=== PATIENT | male | born 1970 | race Caucasian/White ===

== ENCOUNTER 2017-03-07 17:21 | Inpatient (IN) | payer OTHER, SELFPAY ==
[~2017-03-07] VITALS: Ht 165.1 cm; Wt 93.3 kg
[2017-03-07 17:58] LABS: INTERNATIONAL NORMALIZED RATIO 0.93 (0.93-1.1); PROTHROMBIN TIME 9.7 Seconds (9.6-11.5)
[2017-03-07 18:13] LABS: ALANINE AMINOTRANSFERASE 37 U/L (12-78); ALBUMIN 3.2 g/dL (3.4-5.0); ANION GAP 9 mmol/L (5-15); CALCIUM 8.8 mg/dL (8.5-10.1); CHLORIDE 98 mmol/L (98-107); CREATININE 0.73 mg/dL (0.7-1.3)
[2017-03-07 18:16] LABS: ALKALINE PHOSPHATASE 74 U/L (45-117); BILIRUBIN,TOTAL 0.6 mg/dL (0.2-1.0); TOTAL PROTEIN 7.6 g/dL (6.4-8.2)
[2017-03-07 18:20] LABS: BASOPHILS # (AUTO) 0.05 x10^3/uL (0-0.1); BASOPHILS % (AUTO) 0 % (0-1); EOSINOPHILS # (AUTO) 0.03 x10^3/uL (0-0.4); EOSINOPHILS % (AUTO) 0 % (1-7); LYMPHOCYTES # (AUTO) 0.96 x10^3/uL (1-3.4); LYMPHOCYTES % (AUTO) 6 % (22-44); MD NO; MEAN CORPUSCULAR HEMOGLOBIN 29.6 pg (27.5-34.5); MEAN CORPUSCULAR HGB CONC 34.6 g/dL (33.2-36.2); MEAN CORPUSCULAR VOLUME 85.6 fL (81-97); MEAN PLATELET VOLUME 7.3 fL (7.4-10.4); MONOCYTES # (AUTO) 1.05 x10^3/uL (0.2-0.8); MONOCYTES % (AUTO) 6 % (2-9); NEUTROPHILS # (AUTO) 14.57 x10^3/uL (1.8-6.8); NEUTROPHILS % (AUTO) 87 % (42-75); PLATELET COUNT 336 x10^3/uL (130-400); RED BLOOD COUNT 5.01 x10^6/uL (4.38-5.82); RED CELL DISTRIBUTION WIDTH 13.5 % (9.4-14.8)
[2017-03-07] MEDS ORDERED: ONDANSETRON 2MG/ML, 2ML IVPush ONE (19:30)
[2017-03-07] MEDS ORDERED: NS + 20MEQ KCL 1,000 ML IV SCH (19:46)
[2017-03-07] MEDS ORDERED: BISACODYL 10 MG SUPP PR PRN (20:00)
[2017-03-07] MEDS ORDERED: ONDANSETRON 2MG/ML, 2ML IVPush PRN (20:00)
[2017-03-07 21:01] VITALS: BP 189/109
[2017-03-07] MEDS: hydrALAzine 20 MG/ML, 1ML IVPush PRN (21:25)
[2017-03-07 22:00] VITALS: BP 160/87
[2017-03-07] MEDS ORDERED: HALOPERIDOL 5 MG/ML IM ONE (23:00)
[2017-03-07 23:30] VITALS: BP 170/89
[2017-03-08] MEDS ORDERED: SODIUM CHLORIDE 3% 500 ML IV SCH ×4 (01:00→23:06)
[2017-03-08] MEDS ORDERED: LORazepam 2 MG/ML, 1ML IV ONE ×2 (01:30→02:00)
[2017-03-08] MEDS ORDERED: DEXTROSE 50%, 50ML SYRINGE IVPush PRN (02:00)
[2017-03-08] MEDS ORDERED: PHARMACY MAY ADJ FOR RENAL FX MC SCH (02:00)
[2017-03-08] MEDS ORDERED: DEXTROSE 4 GM TAB.CHEW PO PRN (02:00)
[2017-03-08] MEDS ORDERED: INSULIN REGULAR 100 UNITS/ML, 3ML VIAL SQ-INSULIN SCH (02:00)
[2017-03-08] MEDS ORDERED: LIDOCAINE-MPF 1%, 2ML ENDO PRN (02:00)
[2017-03-08] MEDS ORDERED: GLUCAGON 1 MG IM PRN (02:00)
[2017-03-08] MEDS ORDERED: VECURONIUM 10 MG IV ONE (02:00)
[2017-03-08] MEDS ORDERED: MIDAZOLAM 1 MG/ML, 5ML ONE (02:28)
[2017-03-08] MEDS ORDERED: MIDAZOLAM 1 MG/ML, 5ML IVPush ONE (02:30)
[2017-03-08] MEDS: MIDAZOLAM HCL 25 MG in SODIUM CHLORIDE 0.9% 245 ML IV PRN ×5 (02:38→16:25)
[2017-03-08] MEDS ORDERED: AMPICILLIN/SULBACTAM 3 GM in SODIUM CHLORIDE 0.9% 100 ML IV SCH (03:00)
[2017-03-08] MEDS: FAMOTIDINE 20 MG/2 ML IV SCH ×2 (03:02→13:43)
[2017-03-08] MEDS: PROPOFOL 100 ML IV PRN ×8 (03:03→23:51)
[2017-03-08 03:13] LABS: ALANINE AMINOTRANSFERASE 37 U/L (12-78); ALBUMIN 2.9 g/dL (3.4-5.0); ANION GAP 10 mmol/L (5-15); CALCIUM 8.8 mg/dL (8.5-10.1); CHLORIDE 97 mmol/L (98-107); CREATININE 1.27 mg/dL (0.7-1.3)
[2017-03-08 03:15] LABS: ALKALINE PHOSPHATASE 75 U/L (45-117); MD YES; MEAN CORPUSCULAR HEMOGLOBIN 29.4 pg (27.5-34.5); MEAN CORPUSCULAR HGB CONC 34.3 g/dL (33.2-36.2); MEAN CORPUSCULAR VOLUME 85.8 fL (81-97); MEAN PLATELET VOLUME 7.2 fL (7.4-10.4); PLATELET COUNT 339 x10^3/uL (130-400); RED BLOOD COUNT 5.02 x10^6/uL (4.38-5.82); RED CELL DISTRIBUTION WIDTH 13.5 % (9.4-14.8); TOTAL PROTEIN 7.7 g/dL (6.4-8.2)
[2017-03-08 03:18] LABS: BAND#(MANUAL) 1.78 x10^3/uL; BANDS%(MANUAL) 5 % (0-7); LYMPH#(MANUAL) 0.71 x10^3/uL (1-3.4); LYMPHS% (MANUAL) 2 % (22-44); MONOS#(MANUAL) 0.71 x10^3/uL (0.3-2.7); MONOS% (MANUAL) 2 % (2-9); SEG#(MANUAL) 32.31 x10^3/uL (1.8-6.8); SEGS% (MANUAL) 91 % (42-75)
[2017-03-08 03:20] LABS: <PLATELET ESTIMATE> ADEQUATE; <PLT MORPHOLOGY> NORMAL PLT MORPH; <RBC MORPHOLOGY> NORMAL
[2017-03-08 03:22] LABS: GLUCOSE, CSF 86 mg/dL (40-80)
[2017-03-08 03:53] LABS: TOTAL PROTEIN,CSF 453 mg/dL (15-45)
[2017-03-08 04:00] VITALS: BP 146/94
[2017-03-08] MEDS: ACETAMINOPHEN 650 MG/20.3 ML UDC NG PRN ×3 (05:01→23:50)
[2017-03-08 05:33] LABS: MICROSCOPIC INDICATED
[2017-03-08 05:41] LABS: AMPHETAMINE SCREEN, URINE Negative (Negative); BARBITURATE SCREEN, URINE Negative (Negative); BENZODIAZEPINE SCREEN, URINE Positive (Negative); CANNABINOID SCREEN, URINE Negative (Negative); COCAINE SCREEN, URINE Negative (Negative); METHADONE SCREEN, URINE Negative (Negative); OPIATE SCREEN, URINE Negative (Negative)
[2017-03-08 05:53] LABS: CULTURE INDICATED? NO
[2017-03-08] MEDS: hydrALAzine 20 MG/ML, 1ML IVPush PRN (06:30)
[2017-03-08] MEDS ORDERED: VECURONIUM 10 MG ONE (08:00)
[2017-03-08] MEDS ORDERED: PROPOFOL 10 MG/ML, 100ML IV ONE (08:00)
[2017-03-08] MEDS ORDERED: ETOMIDATE 20 MG/10 ML ONE (08:00)
[2017-03-08] MEDS ORDERED: PHARMACOKINETIC MONITORING MC PRN (08:00)
[2017-03-08] MEDS ORDERED: VANCOMYCIN PER PHARMACY MC PRN (08:00)
[2017-03-08] MEDS ORDERED: VANCOMYCIN 1,800 MG in SODIUM CHLORIDE 0.9% 250 ML IV SCH (08:00)
[2017-03-08] MEDS ORDERED: SUCCINYLCHOLINE 20 MG/ML, 10ML ONE (08:00)
[2017-03-08] MEDS ORDERED: PROPOFOL 10 MG/ML, 20ML ONE (08:00)
[2017-03-08] MEDS ORDERED: PHARMACOKINETIC CONSULTATION MC ONE (08:00)
[2017-03-08] MEDS: INSULIN REGULAR 100 UNITS/ML, 3ML VIAL SQ-INSULIN SCH ×4 (08:30→21:19)
[2017-03-08] MEDS ORDERED: CEFTRIAXONE PMX 2GM/50ML 50 ML IVPB SCH (08:30)
[2017-03-08 08:42] LABS: HEMOGLOBIN A1C 6.2 % (4.2-6.3)
[2017-03-08] MEDS: SODIUM CHLORIDE FLUSH 10ML SYR IVF SCH ×2 (08:54→21:19)
[2017-03-08] MEDS: BACITRACIN OINT 500U/GM, 15 GM TP SCH ×3 (08:54→21:20)
[2017-03-08] MEDS: CEFTRIAXONE PMX 2GM/50ML 50 ML IVPB SCH ×2 (10:33→22:45)
[2017-03-08] MEDS: METRONIDAZOLE PMX 500MG/100ML 100 ML IV SCH ×2 (12:13→19:35)
[2017-03-08] MEDS: VANCOMYCIN 1,800 MG in SODIUM CHLORIDE 0.9% 250 ML IV SCH (13:00)
[2017-03-08] MEDS ORDERED: LORazepam 2 MG/ML, 1ML IVPush ONE (18:00)
[2017-03-08] MEDS ORDERED: BUPIVACAINE/PF 0.5% ONE (18:32)
[2017-03-08] MEDS ORDERED: THROMBIN 5,000 UNIT VIAL TP ONE (18:32)
[2017-03-08] MEDS ORDERED: EPINEPHRINE 1 MG/ML, 1ML ONE (18:32)
[2017-03-08] MEDS ORDERED: BACITRACIN 50,000 UNIT ONE (18:32)
[2017-03-08] MEDS ORDERED: FENTANYL PF 250 MCG/5ML ONE (19:00)
[2017-03-08] MEDS ORDERED: MIDAZOLAM 1 MG/ML, 2ML ONE (19:00)
[2017-03-08] MEDS: MIDAZOLAM HCL 50 MG in SODIUM CHLORIDE 0.9% 240 ML IV PRN (19:34)
[2017-03-08] MEDS ORDERED: BACITRACIN OINT 500U/GM, 15 GM ONE ×2 (20:04→20:25)
[2017-03-08] MEDS ORDERED: ROCURONIUM 10 MG/ML,10ML ONE (20:25)
[2017-03-09] MEDS: VANCOMYCIN 1,800 MG in SODIUM CHLORIDE 0.9% 250 ML IV SCH ×2 (00:17→13:00)
[2017-03-09] MEDS: MIDAZOLAM HCL 50 MG in SODIUM CHLORIDE 0.9% 240 ML IV PRN ×2 (00:17→07:44)
[2017-03-09] MEDS: INSULIN REGULAR 100 UNITS/ML, 3ML VIAL SQ-INSULIN SCH ×4 (00:30→20:56)
[2017-03-09] MEDS: FAMOTIDINE 20 MG/2 ML IV SCH ×2 (02:10→17:06)
[2017-03-09] MEDS: hydrALAzine 20 MG/ML, 1ML IVPush PRN ×2 (02:10→11:05)
[2017-03-09] MEDS: PROPOFOL 100 ML IV PRN ×4 (02:16→23:23)
[2017-03-09] MEDS: LORazepam 2 MG/ML, 1ML IVPush PRN ×2 (02:49→12:52)
[2017-03-09] MEDS: METRONIDAZOLE PMX 500MG/100ML 100 ML IV SCH ×3 (04:24→20:52)
[2017-03-09 04:32] LABS: MEAN CORPUSCULAR HEMOGLOBIN 29.5 pg (27.5-34.5); MEAN CORPUSCULAR VOLUME 86.8 fL (81-97); MEAN PLATELET VOLUME 7.1 fL (7.4-10.4); PLATELET COUNT 245 x10^3/uL (130-400); RED BLOOD COUNT 4.18 x10^6/uL (4.38-5.82); RED CELL DISTRIBUTION WIDTH 14.1 % (9.4-14.8)
[2017-03-09 04:41] LABS: ANION GAP 9 mmol/L (5-15); CALCIUM 8.3 mg/dL (8.5-10.1); CHLORIDE 109 mmol/L (98-107); CREATININE 0.77 mg/dL (0.7-1.3)
[2017-03-09 05:06] LABS: BASOPHILS # (AUTO) 0.03 x10^3/uL (0-0.1); BASOPHILS % (AUTO) 0 % (0-1); EOSINOPHILS # (AUTO) 0.01 x10^3/uL (0-0.4); EOSINOPHILS % (AUTO) 0 % (1-7); LYMPHOCYTES # (AUTO) 0.65 x10^3/uL (1-3.4); LYMPHOCYTES % (AUTO) 4 % (22-44); MD SCAN; MONOCYTES # (AUTO) 0.87 x10^3/uL (0.2-0.8); MONOCYTES % (AUTO) 6 % (2-9); NEUTROPHILS # (AUTO) 14.36 x10^3/uL (1.8-6.8); NEUTROPHILS % (AUTO) 90 % (42-75)
[2017-03-09] MEDS ORDERED: SODIUM CHLORIDE 3% 500 ML IV SCH ×5 (06:00→22:00)
[2017-03-09] MEDS: SODIUM CHLORIDE FLUSH 10ML SYR IVF SCH ×2 (08:38→20:51)
[2017-03-09] MEDS: BACITRACIN OINT 500U/GM, 15 GM TP SCH ×2 (08:42→20:52)
[2017-03-09] MEDS ORDERED: INSULIN REGULAR, HUMAN 100 UNIT/ML 3ML VIAL LOW DOSE SS SQ-INSULIN SCH (09:30)
[2017-03-09] MEDS: CEFTRIAXONE PMX 2GM/50ML 50 ML IVPB SCH ×2 (10:56→23:22)
[2017-03-09] MEDS: ACETAMINOPHEN 650 MG/20.3 ML UDC NG PRN ×2 (11:05→20:57)
[2017-03-09] MEDS ORDERED: GADOBUTROL 10 MMOL/10 ML PFS ONE (12:20)
[2017-03-10] MEDS: hydrALAzine 20 MG/ML, 1ML IVPush PRN ×4 (02:27→23:15)
[2017-03-10] MEDS: VANCOMYCIN 1,800 MG in SODIUM CHLORIDE 0.9% 250 ML IV SCH (02:27)
[2017-03-10] MEDS: FAMOTIDINE 20 MG/2 ML IV SCH ×2 (02:27→14:31)
[2017-03-10] MEDS: INSULIN REGULAR 100 UNITS/ML, 3ML VIAL SQ-INSULIN SCH ×4 (03:00→21:28)
[2017-03-10] MEDS: LORazepam 2 MG/ML, 1ML IVPush PRN ×2 (03:05→09:06)
[2017-03-10] MEDS: PROPOFOL 100 ML IV PRN ×3 (03:21→20:30)
[2017-03-10] MEDS: METRONIDAZOLE PMX 500MG/100ML 100 ML IV SCH ×2 (03:21→16:55)
[2017-03-10 03:22] LABS: BASOPHILS # (AUTO) 0.02 x10^3/uL (0-0.1); BASOPHILS % (AUTO) 0 % (0-1); EOSINOPHILS # (AUTO) 0.01 x10^3/uL (0-0.4); EOSINOPHILS % (AUTO) 0 % (1-7); LYMPHOCYTES # (AUTO) 0.96 x10^3/uL (1-3.4); LYMPHOCYTES % (AUTO) 6 % (22-44); MD NO; MEAN CORPUSCULAR HEMOGLOBIN 29.4 pg (27.5-34.5); MEAN CORPUSCULAR HGB CONC 33.6 g/dL (33.2-36.2); MEAN CORPUSCULAR VOLUME 87.5 fL (81-97); MEAN PLATELET VOLUME 7.2 fL (7.4-10.4); MONOCYTES # (AUTO) 1.13 x10^3/uL (0.2-0.8); MONOCYTES % (AUTO) 8 % (2-9); NEUTROPHILS # (AUTO) 12.79 x10^3/uL (1.8-6.8); NEUTROPHILS % (AUTO) 86 % (42-75); PLATELET COUNT 262 x10^3/uL (130-400); RED BLOOD COUNT 4.42 x10^6/uL (4.38-5.82); RED CELL DISTRIBUTION WIDTH 13.9 % (9.4-14.8)
[2017-03-10 03:28] LABS: ANION GAP 6 mmol/L (5-15); CALCIUM 8.8 mg/dL (8.5-10.1); CHLORIDE 111 mmol/L (98-107); CREATININE 0.78 mg/dL (0.7-1.3)
[2017-03-10] MEDS: SODIUM CHLORIDE FLUSH 10ML SYR IVF SCH ×2 (09:00→21:27)
[2017-03-10] MEDS: METOPROLOL 1 MG/ML, 5ML IVPush PRN ×3 (10:13→23:40)
[2017-03-10] MEDS: BACITRACIN OINT 500U/GM, 15 GM TP SCH ×2 (10:15→21:28)
[2017-03-10] MEDS ORDERED: METOPROLOL 1 MG/ML, 5ML IVPush PRN (10:30)
[2017-03-10] MEDS: CEFTRIAXONE PMX 2GM/50ML 50 ML IVPB SCH ×2 (11:16→23:15)
[2017-03-10] MEDS ORDERED: SODIUM CHLORIDE 3% 500 ML IV SCH ×4 (11:30→22:30)
[2017-03-10] MEDS: LISINOPRIL 10 MG TABLET PO SCH ×2 (14:31→21:28)
[2017-03-10 14:37] LABS: GLUCOSE, CSF 40 mg/dL (40-80)
[2017-03-10 15:00] LABS: TOTAL PROTEIN,CSF 265 mg/dL (15-45)
[2017-03-10] MEDS: ACETAMINOPHEN 650 MG/20.3 ML UDC NG PRN (16:01)
[2017-03-11] MEDS: METRONIDAZOLE PMX 500MG/100ML 100 ML IV SCH ×3 (01:06→16:54)
[2017-03-11] MEDS: FAMOTIDINE 20 MG/2 ML IV SCH ×2 (02:42→14:40)
[2017-03-11] MEDS: INSULIN REGULAR 100 UNITS/ML, 3ML VIAL SQ-INSULIN SCH ×4 (03:24→20:58)
[2017-03-11 04:00] VITALS: BP 146/74
[2017-03-11] MEDS: METOPROLOL 1 MG/ML, 5ML IVPush PRN ×3 (04:32→13:45)
[2017-03-11 05:07] LABS: BASOPHILS # (AUTO) 0.04 x10^3/uL (0-0.1); BASOPHILS % (AUTO) 0 % (0-1); EOSINOPHILS # (AUTO) 0.03 x10^3/uL (0-0.4); EOSINOPHILS % (AUTO) 0 % (1-7); LYMPHOCYTES # (AUTO) 0.74 x10^3/uL (1-3.4); LYMPHOCYTES % (AUTO) 6 % (22-44); MD NO; MEAN CORPUSCULAR HEMOGLOBIN 29.2 pg (27.5-34.5); MEAN CORPUSCULAR HGB CONC 33.3 g/dL (33.2-36.2); MEAN CORPUSCULAR VOLUME 87.6 fL (81-97); MEAN PLATELET VOLUME 7.1 fL (7.4-10.4); MONOCYTES # (AUTO) 1.04 x10^3/uL (0.2-0.8); MONOCYTES % (AUTO) 9 % (2-9); NEUTROPHILS # (AUTO) 10.15 x10^3/uL (1.8-6.8); NEUTROPHILS % (AUTO) 85 % (42-75); PLATELET COUNT 290 x10^3/uL (130-400); RED BLOOD COUNT 4.22 x10^6/uL (4.38-5.82); RED CELL DISTRIBUTION WIDTH 14.5 % (9.4-14.8)
[2017-03-11 05:17] LABS: CHLORIDE 111 mmol/L (98-107)
[2017-03-11] MEDS: PROPOFOL 100 ML IV PRN ×2 (05:25→18:06)
[2017-03-11 05:26] LABS: ANION GAP 9 mmol/L (5-15); CALCIUM 8.6 mg/dL (8.5-10.1); CREATININE 0.74 mg/dL (0.7-1.3); TRIGLYCERIDES 79 mg/dL (50-200)
[2017-03-11] MEDS: hydrALAzine 20 MG/ML, 1ML IVPush PRN ×4 (05:31→20:52)
[2017-03-11] MEDS: LISINOPRIL 10 MG TABLET PO SCH (07:33)
[2017-03-11] MEDS: ACETAMINOPHEN 650 MG/20.3 ML UDC NG PRN (07:33)
[2017-03-11] MEDS: SODIUM CHLORIDE FLUSH 10ML SYR IVF SCH ×2 (07:33→20:51)
[2017-03-11] MEDS: BACITRACIN OINT 500U/GM, 15 GM TP SCH ×2 (07:33→21:01)
[2017-03-11] MEDS ORDERED: LISINOPRIL 20 MG TABLET PO SCH (09:00)
[2017-03-11] MEDS ORDERED: AMLODIPINE 5 MG TABLET PO SCH (09:00)
[2017-03-11] MEDS: CEFTRIAXONE PMX 2GM/50ML 50 ML IVPB SCH ×2 (11:04→22:45)
[2017-03-11] MEDS ORDERED: METOPROLOL TARTRATE 25 MG TABLET ONE (14:12)
[2017-03-11] MEDS: METOPROLOL TARTRATE 25 MG TABLET PO SCH (14:41)
[2017-03-11] MEDS: ESMOLOL/NS PMX 250 ML IV PRN (17:11)
[2017-03-11] MEDS: LISINOPRIL 20 MG TABLET PO SCH (20:51)
[2017-03-12] MEDS: ESMOLOL/NS PMX 250 ML IV PRN ×7 (00:32→22:11)
[2017-03-12] MEDS: METRONIDAZOLE PMX 500MG/100ML 100 ML IV SCH ×3 (01:43→17:06)
[2017-03-12] MEDS: INSULIN REGULAR 100 UNITS/ML, 3ML VIAL SQ-INSULIN SCH ×4 (03:00→21:00)
[2017-03-12 04:00] VITALS: BP 144/84
[2017-03-12] MEDS: FAMOTIDINE 20 MG/2 ML IV SCH ×2 (04:07→15:21)
[2017-03-12] MEDS: METOPROLOL TARTRATE 25 MG TABLET PO SCH ×2 (04:07→15:21)
[2017-03-12 04:33] LABS: BASOPHILS # (AUTO) 0.04 x10^3/uL (0-0.1); BASOPHILS % (AUTO) 0 % (0-1); EOSINOPHILS # (AUTO) 0.03 x10^3/uL (0-0.4); EOSINOPHILS % (AUTO) 0 % (1-7); LYMPHOCYTES # (AUTO) 0.98 x10^3/uL (1-3.4); LYMPHOCYTES % (AUTO) 8 % (22-44); MD NO; MEAN CORPUSCULAR HEMOGLOBIN 29.1 pg (27.5-34.5); MEAN CORPUSCULAR HGB CONC 33.7 g/dL (33.2-36.2); MEAN CORPUSCULAR VOLUME 86.3 fL (81-97); MEAN PLATELET VOLUME 7.2 fL (7.4-10.4); MONOCYTES % (AUTO) 9 % (2-9); NEUTROPHILS # (AUTO) 10.72 x10^3/uL (1.8-6.8); NEUTROPHILS % (AUTO) 83 % (42-75); PLATELET COUNT 289 x10^3/uL (130-400); RED BLOOD COUNT 4.28 x10^6/uL (4.38-5.82); RED CELL DISTRIBUTION WIDTH 14.6 % (9.4-14.8)
[2017-03-12 04:39] LABS: ANION GAP 7 mmol/L (5-15); CALCIUM 8.6 mg/dL (8.5-10.1); CHLORIDE 110 mmol/L (98-107)
[2017-03-12 04:40] LABS: CREATININE 0.77 mg/dL (0.7-1.3)
[2017-03-12] MEDS: hydrALAzine 20 MG/ML, 1ML IVPush PRN ×2 (05:14→13:51)
[2017-03-12] MEDS: PROPOFOL 100 ML IV PRN (10:06)
[2017-03-12] MEDS: AMLODIPINE 5 MG TABLET PO SCH (10:07)
[2017-03-12] MEDS: CEFTRIAXONE PMX 2GM/50ML 50 ML IVPB SCH ×2 (10:08→23:08)
[2017-03-12] MEDS: LISINOPRIL 20 MG TABLET PO SCH ×2 (10:08→21:04)
[2017-03-12] MEDS: BACITRACIN OINT 500U/GM, 15 GM TP SCH ×2 (10:17→21:00)
[2017-03-12] MEDS: SODIUM CHLORIDE FLUSH 10ML SYR IVF SCH ×2 (10:17→21:04)
[2017-03-12] MEDS ORDERED: FUROSEMIDE 20 MG/2 ML ONE (16:45)
[2017-03-12] MEDS ORDERED: FUROSEMIDE 20 MG/2 ML IV ONE (18:30)
[2017-03-12] MEDS: LORazepam 2 MG/ML, 1ML IVPush PRN (21:33)
[2017-03-12] MEDS: METOPROLOL 1 MG/ML, 5ML IVPush PRN (23:59)
[2017-03-13] MEDS: ESMOLOL/NS PMX 250 ML IV PRN ×6 (00:10→12:21)
[2017-03-13] MEDS: LORazepam 2 MG/ML, 1ML IVPush PRN ×2 (01:20→03:55)
[2017-03-13] MEDS ORDERED: METOPROLOL TARTRATE 25 MG TABLET PO SCH (02:30)
[2017-03-13] MEDS: FAMOTIDINE 20 MG/2 ML IV SCH ×2 (02:33→15:57)
[2017-03-13] MEDS: INSULIN REGULAR 100 UNITS/ML, 3ML VIAL SQ-INSULIN SCH ×4 (02:41→21:00)
[2017-03-13 03:41] LABS: BASOPHILS # (AUTO) 0.02 x10^3/uL (0-0.1); BASOPHILS % (AUTO) 0 % (0-1); EOSINOPHILS # (AUTO) 0.05 x10^3/uL (0-0.4); EOSINOPHILS % (AUTO) 0 % (1-7); LYMPHOCYTES # (AUTO) 0.99 x10^3/uL (1-3.4); LYMPHOCYTES % (AUTO) 7 % (22-44); MD NO; MEAN CORPUSCULAR HEMOGLOBIN 29.1 pg (27.5-34.5); MEAN CORPUSCULAR HGB CONC 33.1 g/dL (33.2-36.2); MEAN CORPUSCULAR VOLUME 87.7 fL (81-97); MEAN PLATELET VOLUME 7.4 fL (7.4-10.4); MONOCYTES # (AUTO) 1.18 x10^3/uL (0.2-0.8); MONOCYTES % (AUTO) 8 % (2-9); NEUTROPHILS # (AUTO) 12.68 x10^3/uL (1.8-6.8); NEUTROPHILS % (AUTO) 85 % (42-75); PLATELET COUNT 309 x10^3/uL (130-400); RED BLOOD COUNT 4.45 x10^6/uL (4.38-5.82); RED CELL DISTRIBUTION WIDTH 14.3 % (9.4-14.8)
[2017-03-13 03:47] LABS: ANION GAP 10 mmol/L (5-15); CALCIUM 8.8 mg/dL (8.5-10.1); CHLORIDE 107 mmol/L (98-107); CREATININE 0.72 mg/dL (0.7-1.3)
[2017-03-13 04:10] VITALS: BP 135/78
[2017-03-13] MEDS: SODIUM CHLORIDE FLUSH 10ML SYR IVF SCH ×2 (07:26→21:28)
[2017-03-13] MEDS: AMLODIPINE 5 MG TABLET PO SCH (07:27)
[2017-03-13] MEDS: LISINOPRIL 20 MG TABLET PO SCH ×2 (07:27→21:28)
[2017-03-13] MEDS: CEFTRIAXONE PMX 2GM/50ML 50 ML IVPB SCH ×2 (10:29→23:32)
[2017-03-13] MEDS: MINOXIDIL 2.5 MG TABLET PO SCH ×3 (10:29→21:27)
[2017-03-13] MEDS: METOPROLOL TARTRATE 100 MG TABLET PO SCH ×2 (10:29→21:27)
[2017-03-13 11:21] LABS: GLUCOSE, CSF 71 mg/dL (40-80); TOTAL PROTEIN,CSF 203 mg/dL (15-45)
[2017-03-13] MEDS: BACITRACIN OINT 500U/GM, 15 GM TP SCH ×2 (15:54→21:28)
[2017-03-13] MEDS: FUROSEMIDE 20 MG/2 ML IV SCH (16:44)
[2017-03-14] MEDS: FUROSEMIDE 20 MG/2 ML IV SCH ×3 (00:29→16:37)
[2017-03-14] MEDS: FAMOTIDINE 20 MG/2 ML IV SCH ×2 (02:26→16:36)
[2017-03-14] MEDS: INSULIN REGULAR 100 UNITS/ML, 3ML VIAL SQ-INSULIN SCH ×4 (03:00→20:59)
[2017-03-14 04:00] VITALS: BP 126/58
[2017-03-14 04:54] LABS: MEAN CORPUSCULAR HEMOGLOBIN 29.5 pg (27.5-34.5); MEAN CORPUSCULAR HGB CONC 33.9 g/dL (33.2-36.2); MEAN CORPUSCULAR VOLUME 86.9 fL (81-97); PLATELET COUNT 314 x10^3/uL (130-400); RED BLOOD COUNT 4.51 x10^6/uL (4.38-5.82); RED CELL DISTRIBUTION WIDTH 14.1 % (9.4-14.8)
[2017-03-14 05:02] LABS: ANION GAP 6 mmol/L (5-15); CALCIUM 8.9 mg/dL (8.5-10.1); CHLORIDE 111 mmol/L (98-107); CREATININE 0.84 mg/dL (0.7-1.3); TRIGLYCERIDES 132 mg/dL (50-200)
[2017-03-14 05:47] LABS: BASOPHILS # (AUTO) 0.11 x10^3/uL (0-0.1); BASOPHILS % (AUTO) 1 % (0-1); EOSINOPHILS # (AUTO) 0.09 x10^3/uL (0-0.4); EOSINOPHILS % (AUTO) 1 % (1-7); LYMPHOCYTES # (AUTO) 1.09 x10^3/uL (1-3.4); LYMPHOCYTES % (AUTO) 6 % (22-44); MD SCAN; MONOCYTES # (AUTO) 1.07 x10^3/uL (0.2-0.8); MONOCYTES % (AUTO) 6 % (2-9); NEUTROPHILS # (AUTO) 15.54 x10^3/uL (1.8-6.8); NEUTROPHILS % (AUTO) 87 % (42-75)
[2017-03-14] MEDS: SODIUM CHLORIDE FLUSH 10ML SYR IVF SCH (09:36)
[2017-03-14] MEDS: METOPROLOL TARTRATE 100 MG TABLET PO SCH ×2 (09:37→21:00)
[2017-03-14] MEDS: AMLODIPINE 5 MG TABLET PO SCH (09:37)
[2017-03-14] MEDS: POTASSIUM CHLORIDE 10% 40 MEQ/30 ML UDC PO SCH ×2 (09:37→20:55)
[2017-03-14] MEDS: LISINOPRIL 20 MG TABLET PO SCH ×2 (09:38→21:00)
[2017-03-14] MEDS: ACETAMINOPHEN 650 MG/20.3 ML UDC NG PRN ×3 (09:38→23:39)
[2017-03-14] MEDS: DOXAZOSIN 2MG TABLET PO SCH (10:06)
[2017-03-14] MEDS: CEFTRIAXONE PMX 2GM/50ML 50 ML IVPB SCH ×2 (11:54→23:39)
[2017-03-14] MEDS: BACITRACIN OINT 500U/GM, 15 GM TP SCH ×2 (14:23→20:55)
[2017-03-15] MEDS: FUROSEMIDE 20 MG/2 ML IV SCH ×3 (00:55→17:26)
[2017-03-15] MEDS: SODIUM CHLORIDE FLUSH 10ML SYR IVF SCH ×3 (01:02→20:46)
[2017-03-15] MEDS: FAMOTIDINE 20 MG/2 ML IV SCH ×2 (02:42→15:15)
[2017-03-15] MEDS: INSULIN REGULAR 100 UNITS/ML, 3ML VIAL SQ-INSULIN SCH ×4 (02:46→21:00)
[2017-03-15 04:00] VITALS: BP 122/72
[2017-03-15 04:41] LABS: BASOPHILS # (AUTO) 0.02 x10^3/uL (0-0.1); BASOPHILS % (AUTO) 0 % (0-1); EOSINOPHILS % (AUTO) 2 % (1-7); LYMPHOCYTES # (AUTO) 1.01 x10^3/uL (1-3.4); LYMPHOCYTES % (AUTO) 8 % (22-44); MD NO; MEAN CORPUSCULAR HEMOGLOBIN 29.2 pg (27.5-34.5); MEAN CORPUSCULAR HGB CONC 33.6 g/dL (33.2-36.2); MEAN CORPUSCULAR VOLUME 87.1 fL (81-97); MEAN PLATELET VOLUME 7.4 fL (7.4-10.4); MONOCYTES # (AUTO) 1.05 x10^3/uL (0.2-0.8); MONOCYTES % (AUTO) 8 % (2-9); NEUTROPHILS # (AUTO) 11.26 x10^3/uL (1.8-6.8); NEUTROPHILS % (AUTO) 83 % (42-75); PLATELET COUNT 262 x10^3/uL (130-400); RED BLOOD COUNT 4.25 x10^6/uL (4.38-5.82); RED CELL DISTRIBUTION WIDTH 14.2 % (9.4-14.8)
[2017-03-15 04:50] LABS: ANION GAP 6 mmol/L (5-15); CALCIUM 8.6 mg/dL (8.5-10.1); CHLORIDE 115 mmol/L (98-107)
[2017-03-15 04:53] LABS: CREATININE 1.11 mg/dL (0.7-1.3)
[2017-03-15] MEDS: DOXAZOSIN 2MG TABLET PO SCH (07:01)
[2017-03-15] MEDS: METOPROLOL TARTRATE 100 MG TABLET PO SCH ×2 (08:51→20:46)
[2017-03-15] MEDS: LISINOPRIL 20 MG TABLET PO SCH ×2 (08:51→20:47)
[2017-03-15] MEDS: POTASSIUM CHLORIDE 10% 40 MEQ/30 ML UDC PO SCH ×2 (08:51→20:47)
[2017-03-15] MEDS: AMLODIPINE 5 MG TABLET PO SCH (08:51)
[2017-03-15] MEDS: BACITRACIN OINT 500U/GM, 15 GM TP SCH ×2 (09:07→20:47)
[2017-03-15] MEDS: CEFTRIAXONE PMX 2GM/50ML 50 ML IVPB SCH ×2 (11:33→22:54)
[2017-03-15] MEDS: ACETAMINOPHEN 650 MG/20.3 ML UDC NG PRN ×2 (12:51→22:01)
[2017-03-16] MEDS: FAMOTIDINE 20 MG/2 ML IV SCH ×2 (02:03→14:05)
[2017-03-16] MEDS: FUROSEMIDE 20 MG/2 ML IV SCH ×2 (02:03→09:03)
[2017-03-16] MEDS: ACETAMINOPHEN 650 MG/20.3 ML UDC NG PRN ×2 (04:22→18:11)
[2017-03-16 04:31] LABS: MEAN CORPUSCULAR HEMOGLOBIN 29.6 pg (27.5-34.5); MEAN CORPUSCULAR VOLUME 87.1 fL (81-97); MEAN PLATELET VOLUME 7.4 fL (7.4-10.4); PLATELET COUNT 333 x10^3/uL (130-400); RED BLOOD COUNT 4.72 x10^6/uL (4.38-5.82); RED CELL DISTRIBUTION WIDTH 14.6 % (9.4-14.8)
[2017-03-16 04:35] VITALS: BP 132/70
[2017-03-16 04:40] LABS: ANION GAP 4 mmol/L (5-15); CALCIUM 9.2 mg/dL (8.5-10.1); CHLORIDE 116 mmol/L (98-107); CREATININE 1.04 mg/dL (0.7-1.3)
[2017-03-16 05:13] LABS: BASOPHILS # (AUTO) 0.03 x10^3/uL (0-0.1); BASOPHILS % (AUTO) 0 % (0-1); EOSINOPHILS # (AUTO) 0.25 x10^3/uL (0-0.4); EOSINOPHILS % (AUTO) 2 % (1-7); LYMPHOCYTES # (AUTO) 0.91 x10^3/uL (1-3.4); LYMPHOCYTES % (AUTO) 6 % (22-44); MD SCAN; MONOCYTES # (AUTO) 1.13 x10^3/uL (0.2-0.8); MONOCYTES % (AUTO) 7 % (2-9); NEUTROPHILS # (AUTO) 14.08 x10^3/uL (1.8-6.8); NEUTROPHILS % (AUTO) 86 % (42-75)
[2017-03-16] MEDS: INSULIN REGULAR 100 UNITS/ML, 3ML VIAL SQ-INSULIN SCH (05:30)
[2017-03-16] MEDS: METOPROLOL TARTRATE 50 MG TABLET PO SCH ×2 (09:04→16:59)
[2017-03-16] MEDS: DOXAZOSIN 2MG TABLET PO SCH (09:04)
[2017-03-16] MEDS: LISINOPRIL 20 MG TABLET PO SCH ×2 (09:04→20:32)
[2017-03-16] MEDS: POTASSIUM CHLORIDE 10% 40 MEQ/30 ML UDC PO SCH ×2 (09:04→21:01)
[2017-03-16] MEDS: AMLODIPINE 5 MG TABLET PO SCH (09:04)
[2017-03-16] MEDS: BACITRACIN OINT 500U/GM, 15 GM TP SCH ×2 (09:05→21:01)
[2017-03-16 10:03] LABS: GLUCOSE, CSF 31 mg/dL (40-80); TOTAL PROTEIN,CSF 238 mg/dL (15-45)
[2017-03-16] MEDS: SODIUM CHLORIDE FLUSH 10ML SYR IVF SCH ×2 (11:00→21:01)
[2017-03-16] MEDS: CEFTRIAXONE PMX 2GM/50ML 50 ML IVPB SCH ×2 (11:00→23:07)
[2017-03-16] MEDS ORDERED: FENTANYL PF 100 MCG/2ML ONE (15:06)
[2017-03-16] MEDS ORDERED: MIDAZOLAM 1 MG/ML, 5ML ONE (15:06)
[2017-03-16] MEDS ORDERED: ALBUMIN HUMAN 5% 250 ML IV ONE (16:00)
[2017-03-16] MEDS ORDERED: FENTANYL PF 100 MCG/2ML IVPush ONE (16:00)
[2017-03-16 17:07] LABS: GLUCOSE, CSF 56 mg/dL (40-80); TOTAL PROTEIN,CSF 171 mg/dL (15-45)
[2017-03-16] MEDS ORDERED: SODIUM CHLORIDE 0.9%, 250ML IVBOLUS ONE (20:30)
[2017-03-17] MEDS: METOPROLOL TARTRATE 50 MG TABLET PO SCH ×3 (00:30→16:30)
[2017-03-17] MEDS: FAMOTIDINE 20 MG/2 ML IV SCH ×2 (02:57→16:00)
[2017-03-17 04:00] VITALS: BP 110/50
[2017-03-17 04:47] LABS: BASOPHILS % (AUTO) 1 % (0-1); EOSINOPHILS # (AUTO) 0.49 x10^3/uL (0-0.4); EOSINOPHILS % (AUTO) 3 % (1-7); LYMPHOCYTES # (AUTO) 1.06 x10^3/uL (1-3.4); LYMPHOCYTES % (AUTO) 7 % (22-44); MD NO; MEAN CORPUSCULAR HEMOGLOBIN 29.2 pg (27.5-34.5); MEAN CORPUSCULAR HGB CONC 33.2 g/dL (33.2-36.2); MEAN CORPUSCULAR VOLUME 88.2 fL (81-97); MEAN PLATELET VOLUME 7.7 fL (7.4-10.4); MONOCYTES # (AUTO) 1.09 x10^3/uL (0.2-0.8); MONOCYTES % (AUTO) 7 % (2-9); NEUTROPHILS # (AUTO) 12.14 x10^3/uL (1.8-6.8); NEUTROPHILS % (AUTO) 82 % (42-75); PLATELET COUNT 307 x10^3/uL (130-400); RED CELL DISTRIBUTION WIDTH 14.8 % (9.4-14.8)
[2017-03-17 05:00] LABS: ANION GAP 5 mmol/L (5-15); CALCIUM 9.4 mg/dL (8.5-10.1); CHLORIDE 121 mmol/L (98-107); CREATININE 1.43 mg/dL (0.7-1.3)
[2017-03-17] MEDS: SODIUM CHLORIDE FLUSH 10ML SYR IVF SCH ×2 (07:58→20:30)
[2017-03-17] MEDS: DOXAZOSIN 2MG TABLET PO SCH (08:57)
[2017-03-17] MEDS: AMLODIPINE 5 MG TABLET PO SCH (08:57)
[2017-03-17] MEDS: BACITRACIN OINT 500U/GM, 15 GM TP SCH ×2 (08:58→20:30)
[2017-03-17] MEDS: LISINOPRIL 20 MG TABLET PO SCH ×2 (08:58→20:30)
[2017-03-17] MEDS ORDERED: FUROSEMIDE 20 MG/2 ML IV SCH (09:00)
[2017-03-17] MEDS: TAMSULOSIN 0.4 MG CAP.ER.24H PO SCH (10:04)
[2017-03-17] MEDS: CEFTRIAXONE PMX 2GM/50ML 50 ML IVPB SCH ×2 (11:32→22:35)
[2017-03-17] MEDS ORDERED: SODIUM CHLORIDE 0.9%, 500ML IVBOLUS PRN (13:30)
[2017-03-17] MEDS ORDERED: SODIUM CHLORIDE 0.9%, 500ML IVBOLUS ONE (13:30)
[2017-03-17] MEDS: NOREPINEPHRINE 4 MG in SODIUM CHLORIDE 0.9% 246 ML IV SCH (14:20)
[2017-03-18] MEDS: METOPROLOL TARTRATE 50 MG TABLET PO SCH ×3 (01:18→16:30)
[2017-03-18] MEDS: FAMOTIDINE 20 MG/2 ML IV SCH ×2 (01:31→15:44)
[2017-03-18 03:58] VITALS: BP 138/69
[2017-03-18 04:35] LABS: BASOPHILS # (AUTO) 0.07 x10^3/uL (0-0.1); BASOPHILS % (AUTO) 1 % (0-1); EOSINOPHILS # (AUTO) 0.51 x10^3/uL (0-0.4); EOSINOPHILS % (AUTO) 4 % (1-7); LYMPHOCYTES # (AUTO) 0.92 x10^3/uL (1-3.4); LYMPHOCYTES % (AUTO) 7 % (22-44); MD NO; MEAN CORPUSCULAR HEMOGLOBIN 29.5 pg (27.5-34.5); MEAN CORPUSCULAR HGB CONC 33.3 g/dL (33.2-36.2); MEAN CORPUSCULAR VOLUME 88.4 fL (81-97); MONOCYTES % (AUTO) 7 % (2-9); NEUTROPHILS # (AUTO) 10.71 x10^3/uL (1.8-6.8); NEUTROPHILS % (AUTO) 82 % (42-75); PLATELET COUNT 265 x10^3/uL (130-400); RED BLOOD COUNT 4.35 x10^6/uL (4.38-5.82); RED CELL DISTRIBUTION WIDTH 14.9 % (9.4-14.8)
[2017-03-18 04:44] LABS: ANION GAP 2 mmol/L (5-15); CALCIUM 9.1 mg/dL (8.5-10.1); CHLORIDE 122 mmol/L (98-107); CREATININE 1.32 mg/dL (0.7-1.3)
[2017-03-18] MEDS: TAMSULOSIN 0.4 MG CAP.ER.24H PO SCH (10:19)
[2017-03-18] MEDS: LISINOPRIL 20 MG TABLET PO SCH ×2 (10:19→20:55)
[2017-03-18] MEDS: BACITRACIN OINT 500U/GM, 15 GM TP SCH ×2 (10:19→20:55)
[2017-03-18] MEDS: DOXAZOSIN 2MG TABLET PO SCH (10:20)
[2017-03-18] MEDS: SODIUM CHLORIDE FLUSH 10ML SYR IVF SCH ×2 (10:42→20:54)
[2017-03-18] MEDS: CEFTRIAXONE PMX 2GM/50ML 50 ML IVPB SCH ×2 (11:26→22:42)
[2017-03-19] MEDS: METOPROLOL TARTRATE 50 MG TABLET PO SCH ×2 (00:30→16:42)
[2017-03-19] MEDS: FAMOTIDINE 20 MG/2 ML IV SCH ×2 (01:59→14:46)
[2017-03-19 04:00] VITALS: BP 108/60
[2017-03-19 04:50] LABS: ANION GAP 5 mmol/L (5-15); CALCIUM 9.4 mg/dL (8.5-10.1); CHLORIDE 123 mmol/L (98-107); CREATININE 1.34 mg/dL (0.7-1.3)
[2017-03-19 04:58] LABS: BASOPHILS # (AUTO) 0.04 x10^3/uL (0-0.1); BASOPHILS % (AUTO) 0 % (0-1); EOSINOPHILS # (AUTO) 0.52 x10^3/uL (0-0.4); EOSINOPHILS % (AUTO) 4 % (1-7); LYMPHOCYTES # (AUTO) 0.99 x10^3/uL (1-3.4); LYMPHOCYTES % (AUTO) 8 % (22-44); MD NO; MEAN CORPUSCULAR HEMOGLOBIN 29.1 pg (27.5-34.5); MEAN CORPUSCULAR HGB CONC 32.6 g/dL (33.2-36.2); MEAN CORPUSCULAR VOLUME 89.1 fL (81-97); MEAN PLATELET VOLUME 8.4 fL (7.4-10.4); MONOCYTES % (AUTO) 7 % (2-9); NEUTROPHILS # (AUTO) 10.54 x10^3/uL (1.8-6.8); NEUTROPHILS % (AUTO) 81 % (42-75); PLATELET COUNT 259 x10^3/uL (130-400); RED BLOOD COUNT 4.44 x10^6/uL (4.38-5.82)
[2017-03-19] MEDS: LISINOPRIL 20 MG TABLET PO SCH ×2 (09:53→20:53)
[2017-03-19] MEDS: LACTOBACILLUS CHEW TABLET NG SCH ×3 (09:53→20:52)
[2017-03-19] MEDS: TAMSULOSIN 0.4 MG CAP.ER.24H PO SCH (09:54)
[2017-03-19] MEDS: SODIUM CHLORIDE FLUSH 10ML SYR IVF SCH ×2 (09:54→20:53)
[2017-03-19] MEDS: BACITRACIN OINT 500U/GM, 15 GM TP SCH ×2 (09:54→20:53)
[2017-03-19] MEDS: CEFTRIAXONE PMX 2GM/50ML 50 ML IVPB SCH ×2 (10:29→22:50)
[2017-03-19] MEDS: DIPHENOXYLATE/ATROPINE ORAL SOL NG SCH (14:47)
[2017-03-20] MEDS: FAMOTIDINE 20 MG/2 ML IV SCH ×2 (02:01→16:11)
[2017-03-20 04:00] VITALS: BP 140/72
[2017-03-20 04:27] LABS: ANION GAP 3 mmol/L (5-15); CALCIUM 9.8 mg/dL (8.5-10.1); CHLORIDE 120 mmol/L (98-107)
[2017-03-20 04:30] LABS: CREATININE 1.09 mg/dL (0.7-1.3)
[2017-03-20 04:39] LABS: BASOPHILS # (AUTO) 0.05 x10^3/uL (0-0.1); BASOPHILS % (AUTO) 0 % (0-1); EOSINOPHILS # (AUTO) 0.47 x10^3/uL (0-0.4); EOSINOPHILS % (AUTO) 4 % (1-7); LYMPHOCYTES # (AUTO) 1.08 x10^3/uL (1-3.4); LYMPHOCYTES % (AUTO) 9 % (22-44); MD NO; MEAN CORPUSCULAR HEMOGLOBIN 29.3 pg (27.5-34.5); MEAN CORPUSCULAR HGB CONC 33.2 g/dL (33.2-36.2); MEAN CORPUSCULAR VOLUME 88.2 fL (81-97); MEAN PLATELET VOLUME 8.8 fL (7.4-10.4); MONOCYTES # (AUTO) 0.82 x10^3/uL (0.2-0.8); MONOCYTES % (AUTO) 7 % (2-9); NEUTROPHILS # (AUTO) 10.12 x10^3/uL (1.8-6.8); NEUTROPHILS % (AUTO) 81 % (42-75); PLATELET COUNT 261 x10^3/uL (130-400); RED BLOOD COUNT 4.59 x10^6/uL (4.38-5.82); RED CELL DISTRIBUTION WIDTH 15.1 % (9.4-14.8)
[2017-03-20] MEDS: METOPROLOL TARTRATE 50 MG TABLET PO SCH ×2 (05:58→17:32)
[2017-03-20] MEDS: BACITRACIN OINT 500U/GM, 15 GM TP SCH ×2 (09:03→20:56)
[2017-03-20] MEDS: TAMSULOSIN 0.4 MG CAP.ER.24H PO SCH (09:03)
[2017-03-20] MEDS: DIPHENOXYLATE/ATROPINE ORAL SOL NG SCH (09:03)
[2017-03-20] MEDS: LACTOBACILLUS CHEW TABLET NG SCH ×3 (09:03→20:55)
[2017-03-20] MEDS: LISINOPRIL 20 MG TABLET PO SCH ×2 (09:03→20:55)
[2017-03-20] MEDS: SODIUM CHLORIDE FLUSH 10ML SYR IVF SCH ×2 (09:04→20:55)
[2017-03-20] MEDS: CEFTRIAXONE PMX 2GM/50ML 50 ML IVPB SCH ×2 (11:24→22:22)
[2017-03-21 04:00] VITALS: BP 125/66
[2017-03-21 04:42] LABS: CHLORIDE 117 mmol/L (98-107)
[2017-03-21 04:46] LABS: ANION GAP 4 mmol/L (5-15); CALCIUM 9.8 mg/dL (8.5-10.1); CREATININE 1.18 mg/dL (0.7-1.3)
[2017-03-21] MEDS: FAMOTIDINE 20 MG/2 ML IV SCH ×2 (04:54→16:54)
[2017-03-21 05:41] LABS: MEAN CORPUSCULAR HEMOGLOBIN 29.7 pg (27.5-34.5); MEAN CORPUSCULAR HGB CONC 33.8 g/dL (33.2-36.2); PLATELET COUNT 275 x10^3/uL (130-400); RED BLOOD COUNT 4.62 x10^6/uL (4.38-5.82); RED CELL DISTRIBUTION WIDTH 14.5 % (9.4-14.8)
[2017-03-21 05:42] LABS: MD YES
[2017-03-21 05:44] LABS: BASOS#(MANUAL) 0.12 x10^3/uL (0-0.1); BASOS% (MANUAL) 1 % (0-1); EOS#(MANUAL) 0.37 x10^3/uL (0.0-0.4); EOS% (MANUAL) 3 % (1-7); LYMPH#(MANUAL) 1.72 x10^3/uL (1-3.4); LYMPHS% (MANUAL) 14 % (22-44); MONOS#(MANUAL) 0.49 x10^3/uL (0.3-2.7); MONOS% (MANUAL) 4 % (2-9); SEG#(MANUAL) 9.59 x10^3/uL (1.8-6.8); SEGS% (MANUAL) 78 % (42-75)
[2017-03-21 05:45] LABS: <PLATELET ESTIMATE> ADEQUATE; <RBC MORPHOLOGY> NORMAL; LARGE PLATELETS 1+
[2017-03-21] MEDS: METOPROLOL TARTRATE 50 MG TABLET PO SCH ×2 (05:52→16:54)
[2017-03-21] MEDS: LISINOPRIL 20 MG TABLET PO SCH ×2 (09:10→20:22)
[2017-03-21] MEDS: TAMSULOSIN 0.4 MG CAP.ER.24H PO SCH (09:10)
[2017-03-21] MEDS: LACTOBACILLUS CHEW TABLET NG SCH ×3 (09:10→20:37)
[2017-03-21] MEDS: BACITRACIN OINT 500U/GM, 15 GM TP SCH ×2 (09:10→20:37)
[2017-03-21] MEDS: DIPHENOXYLATE/ATROPINE ORAL SOL NG SCH (09:10)
[2017-03-21] MEDS: SODIUM CHLORIDE FLUSH 10ML SYR IVF SCH ×2 (09:10→20:37)
[2017-03-21] MEDS: CEFTRIAXONE PMX 2GM/50ML 50 ML IVPB SCH ×2 (11:22→22:42)
[2017-03-21] MEDS: ACETAMINOPHEN 650 MG/20.3 ML UDC NG PRN (14:30)
[2017-03-21] MEDS ORDERED: SODIUM CHLORIDE 0.9%, 500ML IVBOLUS ONE (15:30)
[2017-03-21] MEDS: NOREPINEPHRINE 4 MG in SODIUM CHLORIDE 0.9% 246 ML IV SCH (17:46)
[2017-03-22] MEDS: FAMOTIDINE 20 MG/2 ML IV SCH ×2 (03:51→15:36)
[2017-03-22 04:02] VITALS: BP 116/61
[2017-03-22 04:43] LABS: BASOPHILS # (AUTO) 0.06 x10^3/uL (0-0.1); BASOPHILS % (AUTO) 1 % (0-1); EOSINOPHILS % (AUTO) 3 % (1-7); LYMPHOCYTES # (AUTO) 1.23 x10^3/uL (1-3.4); LYMPHOCYTES % (AUTO) 10 % (22-44); MD NO; MEAN CORPUSCULAR HEMOGLOBIN 29.5 pg (27.5-34.5); MEAN CORPUSCULAR HGB CONC 33.7 g/dL (33.2-36.2); MEAN CORPUSCULAR VOLUME 87.6 fL (81-97); MEAN PLATELET VOLUME 9.2 fL (7.4-10.4); MONOCYTES # (AUTO) 1.03 x10^3/uL (0.2-0.8); MONOCYTES % (AUTO) 8 % (2-9); NEUTROPHILS # (AUTO) 9.79 x10^3/uL (1.8-6.8); NEUTROPHILS % (AUTO) 78 % (42-75); PLATELET COUNT 229 x10^3/uL (130-400); RED BLOOD COUNT 4.44 x10^6/uL (4.38-5.82); RED CELL DISTRIBUTION WIDTH 14.4 % (9.4-14.8)
[2017-03-22 05:01] LABS: ANION GAP 3 mmol/L (5-15); CALCIUM 9.4 mg/dL (8.5-10.1); CHLORIDE 117 mmol/L (98-107); CREATININE 1.11 mg/dL (0.7-1.3)
[2017-03-22] MEDS: METOPROLOL TARTRATE 50 MG TABLET PO SCH ×3 (06:00→18:41)
[2017-03-22] MEDS: LISINOPRIL 20 MG TABLET PO SCH (08:10)
[2017-03-22] MEDS: TAMSULOSIN 0.4 MG CAP.ER.24H PO SCH (09:25)
[2017-03-22] MEDS: MEROPENEM 1 GM in SODIUM CHLORIDE 0.9% 100 ML IV SCH ×3 (09:25→23:59)
[2017-03-22] MEDS: DIPHENOXYLATE/ATROPINE ORAL SOL NG SCH (09:25)
[2017-03-22] MEDS: LACTOBACILLUS CHEW TABLET NG SCH ×3 (09:25→20:43)
[2017-03-22] MEDS: BACITRACIN OINT 500U/GM, 15 GM TP SCH ×2 (09:26→20:43)
[2017-03-22] MEDS: SODIUM CHLORIDE FLUSH 10ML SYR IVF SCH ×2 (09:26→20:43)
[2017-03-22] MEDS: HEPARIN 5,000 UNITS/ML, 1ML SQ SCH (17:32)
[2017-03-22] MEDS: LEVETIRACETAM 500 MG in SODIUM CHLORIDE 0.9% 100 ML IV SCH (17:32)
[2017-03-23] MEDS: HEPARIN 5,000 UNITS/ML, 1ML SQ SCH ×3 (00:32→17:26)
[2017-03-23 04:00] VITALS: BP 123/77
[2017-03-23] MEDS: LEVETIRACETAM 500 MG in SODIUM CHLORIDE 0.9% 100 ML IV SCH ×2 (05:13→17:26)
[2017-03-23] MEDS: FAMOTIDINE 20 MG/2 ML IV SCH ×2 (05:13→16:15)
[2017-03-23] MEDS: METOPROLOL TARTRATE 50 MG TABLET PO SCH ×2 (05:33→17:26)
[2017-03-23 07:24] LABS: BASOPHILS # (AUTO) 0.09 x10^3/uL (0-0.1); BASOPHILS % (AUTO) 1 % (0-1); EOSINOPHILS # (AUTO) 0.43 x10^3/uL (0-0.4); EOSINOPHILS % (AUTO) 5 % (1-7); LYMPHOCYTES # (AUTO) 1.52 x10^3/uL (1-3.4); LYMPHOCYTES % (AUTO) 16 % (22-44); MD NO; MEAN CORPUSCULAR HGB CONC 33.3 g/dL (33.2-36.2); MEAN CORPUSCULAR VOLUME 87.1 fL (81-97); MEAN PLATELET VOLUME 9.5 fL (7.4-10.4); MONOCYTES # (AUTO) 0.83 x10^3/uL (0.2-0.8); MONOCYTES % (AUTO) 9 % (2-9); NEUTROPHILS # (AUTO) 6.46 x10^3/uL (1.8-6.8); NEUTROPHILS % (AUTO) 69 % (42-75); PLATELET COUNT 255 x10^3/uL (130-400); RED CELL DISTRIBUTION WIDTH 14.7 % (9.4-14.8)
[2017-03-23 07:36] LABS: ANION GAP 6 mmol/L (5-15); CALCIUM 9.6 mg/dL (8.5-10.1); CHLORIDE 116 mmol/L (98-107); CREATININE 0.93 mg/dL (0.7-1.3)
[2017-03-23] MEDS: MEROPENEM 1 GM in SODIUM CHLORIDE 0.9% 100 ML IV SCH ×3 (08:01→22:40)
[2017-03-23] MEDS: LACTOBACILLUS CHEW TABLET NG SCH ×3 (09:20→22:40)
[2017-03-23] MEDS: DIPHENOXYLATE/ATROPINE ORAL SOL NG SCH (09:20)
[2017-03-23] MEDS: TAMSULOSIN 0.4 MG CAP.ER.24H PO SCH (09:20)
[2017-03-23] MEDS: SODIUM CHLORIDE FLUSH 10ML SYR IVF SCH ×2 (09:20→22:41)
[2017-03-23] MEDS: BACITRACIN OINT 500U/GM, 15 GM TP SCH ×2 (09:20→22:41)
[2017-03-24] MEDS: LEVETIRACETAM 500 MG in SODIUM CHLORIDE 0.9% 100 ML IV SCH ×2 (04:59→17:26)
[2017-03-24] MEDS: HEPARIN 5,000 UNITS/ML, 1ML SQ SCH ×3 (04:59→17:26)
[2017-03-24] MEDS: FAMOTIDINE 20 MG/2 ML IV SCH ×2 (05:00→16:21)
[2017-03-24 06:43] LABS: BASOPHILS # (AUTO) 0.03 x10^3/uL (0-0.1); BASOPHILS % (AUTO) 0 % (0-1); EOSINOPHILS # (AUTO) 0.39 x10^3/uL (0-0.4); EOSINOPHILS % (AUTO) 5 % (1-7); LYMPHOCYTES # (AUTO) 1.64 x10^3/uL (1-3.4); LYMPHOCYTES % (AUTO) 19 % (22-44); MD NO; MEAN CORPUSCULAR HEMOGLOBIN 30.4 pg (27.5-34.5); MEAN CORPUSCULAR HGB CONC 35.3 g/dL (33.2-36.2); MEAN CORPUSCULAR VOLUME 86.2 fL (81-97); MEAN PLATELET VOLUME 9.7 fL (7.4-10.4); MONOCYTES # (AUTO) 0.65 x10^3/uL (0.2-0.8); MONOCYTES % (AUTO) 8 % (2-9); NEUTROPHILS # (AUTO) 5.95 x10^3/uL (1.8-6.8); NEUTROPHILS % (AUTO) 69 % (42-75); PLATELET COUNT 234 x10^3/uL (130-400); RED BLOOD COUNT 4.09 x10^6/uL (4.38-5.82); RED CELL DISTRIBUTION WIDTH 14.4 % (9.4-14.8)
[2017-03-24 06:53] LABS: ANION GAP 8 mmol/L (5-15); CALCIUM 9.7 mg/dL (8.5-10.1); CHLORIDE 114 mmol/L (98-107); CREATININE 0.95 mg/dL (0.7-1.3)
[2017-03-24] MEDS: MEROPENEM 1 GM in SODIUM CHLORIDE 0.9% 100 ML IV SCH ×3 (09:34→22:16)
[2017-03-24] MEDS: TAMSULOSIN 0.4 MG CAP.ER.24H PO SCH (09:36)
[2017-03-24] MEDS: DIPHENOXYLATE/ATROPINE ORAL SOL NG SCH (09:36)
[2017-03-24] MEDS: LACTOBACILLUS CHEW TABLET NG SCH ×3 (09:36→21:41)
[2017-03-24] MEDS: SODIUM CHLORIDE FLUSH 10ML SYR IVF SCH ×2 (09:37→21:41)
[2017-03-24] MEDS: BACITRACIN OINT 500U/GM, 15 GM TP SCH ×2 (09:37→21:42)
[2017-03-24] MEDS: METOPROLOL TARTRATE 25 MG TABLET PO SCH (17:26)
[2017-03-24] MEDS ORDERED: METOPROLOL TARTRATE 25 MG TABLET PO SCH (18:00)
[2017-03-25] MEDS: HEPARIN 5,000 UNITS/ML, 1ML SQ SCH ×3 (01:42→16:34)
[2017-03-25 04:00] VITALS: BP 115/60
[2017-03-25 04:42] LABS: BASOPHILS % (AUTO) 1 % (0-1); EOSINOPHILS # (AUTO) 0.42 x10^3/uL (0-0.4); EOSINOPHILS % (AUTO) 5 % (1-7); LYMPHOCYTES # (AUTO) 1.71 x10^3/uL (1-3.4); LYMPHOCYTES % (AUTO) 21 % (22-44); MD NO; MEAN CORPUSCULAR HEMOGLOBIN 29.1 pg (27.5-34.5); MEAN CORPUSCULAR HGB CONC 33.6 g/dL (33.2-36.2); MEAN CORPUSCULAR VOLUME 86.6 fL (81-97); MEAN PLATELET VOLUME 10.1 fL (7.4-10.4); MONOCYTES # (AUTO) 0.66 x10^3/uL (0.2-0.8); MONOCYTES % (AUTO) 8 % (2-9); NEUTROPHILS # (AUTO) 5.11 x10^3/uL (1.8-6.8); NEUTROPHILS % (AUTO) 64 % (42-75); PLATELET COUNT 258 x10^3/uL (130-400); RED BLOOD COUNT 4.26 x10^6/uL (4.38-5.82); RED CELL DISTRIBUTION WIDTH 14.2 % (9.4-14.8)
[2017-03-25] MEDS: FAMOTIDINE 20 MG/2 ML IV SCH ×2 (04:48→16:33)
[2017-03-25] MEDS: LEVETIRACETAM 500 MG in SODIUM CHLORIDE 0.9% 100 ML IV SCH ×2 (04:48→17:55)
[2017-03-25] MEDS: METOPROLOL TARTRATE 25 MG TABLET PO SCH ×2 (04:48→17:56)
[2017-03-25 04:51] LABS: ANION GAP 5 mmol/L (5-15); CALCIUM 9.5 mg/dL (8.5-10.1); CHLORIDE 112 mmol/L (98-107)
[2017-03-25 04:52] LABS: CREATININE 0.95 mg/dL (0.7-1.3)
[2017-03-25] MEDS: MEROPENEM 1 GM in SODIUM CHLORIDE 0.9% 100 ML IV SCH ×3 (06:18→23:19)
[2017-03-25] MEDS: BACITRACIN OINT 500U/GM, 15 GM TP SCH ×2 (09:34→20:51)
[2017-03-25] MEDS: TAMSULOSIN 0.4 MG CAP.ER.24H PO SCH (09:34)
[2017-03-25] MEDS: DIPHENOXYLATE/ATROPINE ORAL SOL NG SCH (09:34)
[2017-03-25] MEDS: LACTOBACILLUS CHEW TABLET NG SCH ×3 (09:34→20:51)
[2017-03-25] MEDS: SODIUM CHLORIDE FLUSH 10ML SYR IVF SCH ×2 (09:34→20:52)
[2017-03-26] MEDS: HEPARIN 5,000 UNITS/ML, 1ML SQ SCH ×3 (02:36→17:46)
[2017-03-26 03:53] VITALS: BP 142/88
[2017-03-26] MEDS: FAMOTIDINE 20 MG/2 ML IV SCH ×2 (04:21→16:39)
[2017-03-26] MEDS: LEVETIRACETAM 500 MG in SODIUM CHLORIDE 0.9% 100 ML IV SCH ×2 (04:32→17:45)
[2017-03-26] MEDS: METOPROLOL TARTRATE 25 MG TABLET PO SCH ×2 (06:24→17:46)
[2017-03-26 06:56] LABS: BASOPHILS # (AUTO) 0.05 x10^3/uL (0-0.1); BASOPHILS % (AUTO) 1 % (0-1); EOSINOPHILS # (AUTO) 0.35 x10^3/uL (0-0.4); EOSINOPHILS % (AUTO) 4 % (1-7); LYMPHOCYTES # (AUTO) 1.44 x10^3/uL (1-3.4); LYMPHOCYTES % (AUTO) 18 % (22-44); MD NO; MEAN CORPUSCULAR HEMOGLOBIN 28.7 pg (27.5-34.5); MEAN CORPUSCULAR HGB CONC 33.1 g/dL (33.2-36.2); MEAN CORPUSCULAR VOLUME 86.7 fL (81-97); MEAN PLATELET VOLUME 9.4 fL (7.4-10.4); MONOCYTES # (AUTO) 0.61 x10^3/uL (0.2-0.8); MONOCYTES % (AUTO) 8 % (2-9); NEUTROPHILS % (AUTO) 70 % (42-75); PLATELET COUNT 281 x10^3/uL (130-400); RED BLOOD COUNT 4.25 x10^6/uL (4.38-5.82); RED CELL DISTRIBUTION WIDTH 14.7 % (9.4-14.8)
[2017-03-26 07:06] LABS: ANION GAP 4 mmol/L (5-15); CALCIUM 9.2 mg/dL (8.5-10.1); CHLORIDE 112 mmol/L (98-107); CREATININE 0.82 mg/dL (0.7-1.3)
[2017-03-26] MEDS: MEROPENEM 1 GM in SODIUM CHLORIDE 0.9% 100 ML IV SCH ×3 (07:58→22:54)
[2017-03-26] MEDS: TAMSULOSIN 0.4 MG CAP.ER.24H PO SCH (09:39)
[2017-03-26] MEDS: LACTOBACILLUS CHEW TABLET NG SCH ×3 (09:39→21:16)
[2017-03-26] MEDS: DIPHENOXYLATE/ATROPINE ORAL SOL NG SCH (09:39)
[2017-03-26] MEDS: SODIUM CHLORIDE FLUSH 10ML SYR IVF SCH ×2 (09:39→21:17)
[2017-03-26] MEDS: BACITRACIN OINT 500U/GM, 15 GM TP SCH ×2 (09:40→21:17)
[2017-03-26 11:59] LABS: MICROSCOPIC AUTO
[2017-03-26 12:03] LABS: CULTURE INDICATED? NO
[2017-03-26] MEDS: ACETAMINOPHEN 650 MG/20.3 ML UDC NG PRN (13:25)
[2017-03-27 04:00] VITALS: BP 134/70
[2017-03-27] MEDS: HEPARIN 5,000 UNITS/ML, 1ML SQ SCH ×3 (04:24→17:02)
[2017-03-27] MEDS: FAMOTIDINE 20 MG/2 ML IV SCH ×2 (04:24→17:01)
[2017-03-27] MEDS: LEVETIRACETAM 500 MG in SODIUM CHLORIDE 0.9% 100 ML IV SCH ×2 (04:24→17:02)
[2017-03-27 05:09] LABS: BASOPHILS # (AUTO) 0.03 x10^3/uL (0-0.1); BASOPHILS % (AUTO) 0 % (0-1); EOSINOPHILS # (AUTO) 0.35 x10^3/uL (0-0.4); EOSINOPHILS % (AUTO) 4 % (1-7); LYMPHOCYTES # (AUTO) 1.56 x10^3/uL (1-3.4); LYMPHOCYTES % (AUTO) 18 % (22-44); MD NO; MEAN CORPUSCULAR HEMOGLOBIN 28.7 pg (27.5-34.5); MEAN CORPUSCULAR HGB CONC 33.2 g/dL (33.2-36.2); MEAN CORPUSCULAR VOLUME 86.6 fL (81-97); MEAN PLATELET VOLUME 9.7 fL (7.4-10.4); MONOCYTES # (AUTO) 0.77 x10^3/uL (0.2-0.8); MONOCYTES % (AUTO) 9 % (2-9); NEUTROPHILS # (AUTO) 6.14 x10^3/uL (1.8-6.8); NEUTROPHILS % (AUTO) 69 % (42-75); PLATELET COUNT 268 x10^3/uL (130-400); RED BLOOD COUNT 4.18 x10^6/uL (4.38-5.82); RED CELL DISTRIBUTION WIDTH 14.3 % (9.4-14.8)
[2017-03-27 05:15] LABS: ANION GAP 3 mmol/L (5-15); CALCIUM 9.1 mg/dL (8.5-10.1); CHLORIDE 110 mmol/L (98-107)
[2017-03-27 05:21] LABS: CREATININE 0.76 mg/dL (0.7-1.3)
[2017-03-27] MEDS: METOPROLOL TARTRATE 25 MG TABLET PO SCH ×2 (05:40→17:02)
[2017-03-27] MEDS: MEROPENEM 1 GM in SODIUM CHLORIDE 0.9% 100 ML IV SCH ×3 (07:20→23:24)
[2017-03-27] MEDS: TAMSULOSIN 0.4 MG CAP.ER.24H PO SCH (08:55)
[2017-03-27] MEDS: DIPHENOXYLATE/ATROPINE ORAL SOL NG SCH (08:55)
[2017-03-27] MEDS: BACITRACIN OINT 500U/GM, 15 GM TP SCH ×2 (08:55→20:57)
[2017-03-27] MEDS: LACTOBACILLUS CHEW TABLET NG SCH ×3 (08:55→20:57)
[2017-03-27] MEDS: SODIUM CHLORIDE FLUSH 10ML SYR IVF SCH ×2 (08:56→20:56)
[2017-03-28] MEDS: HEPARIN 5,000 UNITS/ML, 1ML SQ SCH ×3 (00:47→17:44)
[2017-03-28 04:00] VITALS: BP 129/83
[2017-03-28] MEDS: FAMOTIDINE 20 MG/2 ML IV SCH ×2 (04:44→16:28)
[2017-03-28] MEDS: LEVETIRACETAM 500 MG in SODIUM CHLORIDE 0.9% 100 ML IV SCH ×2 (04:44→17:44)
[2017-03-28 04:56] LABS: BASOPHILS # (AUTO) 0.03 x10^3/uL (0-0.1); BASOPHILS % (AUTO) 1 % (0-1); EOSINOPHILS # (AUTO) 0.34 x10^3/uL (0-0.4); EOSINOPHILS % (AUTO) 5 % (1-7); HCT (SEDRATE) 35.7 % (39.2-51.8); LYMPHOCYTES # (AUTO) 1.38 x10^3/uL (1-3.4); LYMPHOCYTES % (AUTO) 21 % (22-44); MD NO; MEAN CORPUSCULAR HEMOGLOBIN 29.2 pg (27.5-34.5); MEAN CORPUSCULAR HGB CONC 33.7 g/dL (33.2-36.2); MEAN CORPUSCULAR VOLUME 86.7 fL (81-97); MEAN PLATELET VOLUME 10.1 fL (7.4-10.4); MONOCYTES # (AUTO) 0.54 x10^3/uL (0.2-0.8); MONOCYTES % (AUTO) 8 % (2-9); NEUTROPHILS # (AUTO) 4.27 x10^3/uL (1.8-6.8); NEUTROPHILS % (AUTO) 65 % (42-75); PLATELET COUNT 245 x10^3/uL (130-400); RED BLOOD COUNT 4.11 x10^6/uL (4.38-5.82); RED CELL DISTRIBUTION WIDTH 14.4 % (9.4-14.8)
[2017-03-28 04:59] LABS: CHLORIDE 109 mmol/L (98-107)
[2017-03-28 05:04] LABS: ANION GAP 5 mmol/L (5-15); C-REACTIVE PROTEIN, QUANT 0.69 mg/dL (0.02-0.49); CALCIUM 9.5 mg/dL (8.5-10.1); CREATININE 0.74 mg/dL (0.7-1.3)
[2017-03-28 05:21] LABS: SEDIMENTATION RATE 66 mm/hr (0-10)
[2017-03-28] MEDS: METOPROLOL TARTRATE 25 MG TABLET PO SCH ×2 (06:40→17:45)
[2017-03-28] MEDS: MEROPENEM 1 GM in SODIUM CHLORIDE 0.9% 100 ML IV SCH ×3 (08:45→22:36)
[2017-03-28] MEDS: LACTOBACILLUS CHEW TABLET NG SCH ×3 (08:46→20:17)
[2017-03-28] MEDS: DIPHENOXYLATE/ATROPINE ORAL SOL NG SCH (08:46)
[2017-03-28] MEDS: TAMSULOSIN 0.4 MG CAP.ER.24H PO SCH (08:46)
[2017-03-28] MEDS: SODIUM CHLORIDE FLUSH 10ML SYR IVF SCH ×2 (08:46→20:17)
[2017-03-28] MEDS: BACITRACIN OINT 500U/GM, 15 GM TP SCH ×2 (10:00→20:17)
[2017-03-29] MEDS: HEPARIN 5,000 UNITS/ML, 1ML SQ SCH ×3 (01:13→17:30)
[2017-03-29 04:00] VITALS: BP 126/102
[2017-03-29 04:29] LABS: BASOPHILS # (AUTO) 0.02 x10^3/uL (0-0.1); BASOPHILS % (AUTO) 0 % (0-1); EOSINOPHILS # (AUTO) 0.36 x10^3/uL (0-0.4); EOSINOPHILS % (AUTO) 6 % (1-7); LYMPHOCYTES # (AUTO) 1.28 x10^3/uL (1-3.4); LYMPHOCYTES % (AUTO) 20 % (22-44); MD NO; MEAN CORPUSCULAR HEMOGLOBIN 29.8 pg (27.5-34.5); MEAN CORPUSCULAR HGB CONC 34.3 g/dL (33.2-36.2); MEAN PLATELET VOLUME 9.5 fL (7.4-10.4); MONOCYTES # (AUTO) 0.59 x10^3/uL (0.2-0.8); MONOCYTES % (AUTO) 9 % (2-9); NEUTROPHILS # (AUTO) 4.21 x10^3/uL (1.8-6.8); NEUTROPHILS % (AUTO) 65 % (42-75); PLATELET COUNT 256 x10^3/uL (130-400); RED BLOOD COUNT 4.22 x10^6/uL (4.38-5.82)
[2017-03-29 04:43] LABS: ANION GAP 5 mmol/L (5-15); CALCIUM 9.4 mg/dL (8.5-10.1); CHLORIDE 108 mmol/L (98-107)
[2017-03-29 04:45] LABS: CREATININE 0.69 mg/dL (0.7-1.3)
[2017-03-29] MEDS: LEVETIRACETAM 500 MG in SODIUM CHLORIDE 0.9% 100 ML IV SCH ×2 (04:45→17:19)
[2017-03-29] MEDS: FAMOTIDINE 20 MG/2 ML IV SCH ×2 (04:45→15:08)
[2017-03-29] MEDS: METOPROLOL TARTRATE 25 MG TABLET PO SCH ×2 (04:49→17:30)
[2017-03-29] MEDS: LACTOBACILLUS CHEW TABLET NG SCH (07:50)
[2017-03-29] MEDS: SODIUM CHLORIDE FLUSH 10ML SYR IVF SCH ×2 (07:50→20:51)
[2017-03-29] MEDS: MEROPENEM 1 GM in SODIUM CHLORIDE 0.9% 100 ML IV SCH ×3 (07:50→23:44)
[2017-03-29] MEDS: DIPHENOXYLATE/ATROPINE ORAL SOL NG SCH (07:50)
[2017-03-29] MEDS: TAMSULOSIN 0.4 MG CAP.ER.24H PO SCH (07:50)
[2017-03-29] MEDS: BACITRACIN OINT 500U/GM, 15 GM TP SCH ×2 (07:52→20:51)
[2017-03-29] MEDS: LACTOBACILLUS 1GM/ PACKET NG SCH ×2 (17:19→20:51)
[2017-03-30 02:02] VITALS: BP 127/77
[2017-03-30] MEDS: FAMOTIDINE 20 MG/2 ML IV SCH ×2 (05:14→15:30)
[2017-03-30] MEDS: LEVETIRACETAM 500 MG in SODIUM CHLORIDE 0.9% 100 ML IV SCH ×2 (05:14→16:45)
[2017-03-30] MEDS: METOPROLOL TARTRATE 25 MG TABLET PO SCH ×2 (05:15→18:00)
[2017-03-30 06:20] LABS: BASOPHILS # (AUTO) 0.01 x10^3/uL (0-0.1); BASOPHILS % (AUTO) 0 % (0-1); EOSINOPHILS # (AUTO) 0.24 x10^3/uL (0-0.4); EOSINOPHILS % (AUTO) 4 % (1-7); LYMPHOCYTES # (AUTO) 1.03 x10^3/uL (1-3.4); LYMPHOCYTES % (AUTO) 18 % (22-44); MD NO; MEAN CORPUSCULAR HEMOGLOBIN 28.8 pg (27.5-34.5); MEAN CORPUSCULAR HGB CONC 33.4 g/dL (33.2-36.2); MEAN CORPUSCULAR VOLUME 86.4 fL (81-97); MEAN PLATELET VOLUME 9.5 fL (7.4-10.4); MONOCYTES # (AUTO) 0.49 x10^3/uL (0.2-0.8); MONOCYTES % (AUTO) 8 % (2-9); NEUTROPHILS # (AUTO) 4.02 x10^3/uL (1.8-6.8); NEUTROPHILS % (AUTO) 70 % (42-75); PLATELET COUNT 267 x10^3/uL (130-400); RED BLOOD COUNT 4.46 x10^6/uL (4.38-5.82); RED CELL DISTRIBUTION WIDTH 15.2 % (9.4-14.8)
[2017-03-30 06:33] LABS: ANION GAP 7 mmol/L (5-15); CALCIUM 9.8 mg/dL (8.5-10.1); CHLORIDE 106 mmol/L (98-107)
[2017-03-30 06:34] LABS: CREATININE 0.69 mg/dL (0.7-1.3)
[2017-03-30] MEDS: MEROPENEM 1 GM in SODIUM CHLORIDE 0.9% 100 ML IV SCH ×3 (07:56→22:35)
[2017-03-30] MEDS: TAMSULOSIN 0.4 MG CAP.ER.24H PO SCH (09:17)
[2017-03-30] MEDS: DIPHENOXYLATE/ATROPINE ORAL SOL NG SCH (09:18)
[2017-03-30] MEDS: SODIUM CHLORIDE FLUSH 10ML SYR IVF SCH ×2 (09:18→21:50)
[2017-03-30] MEDS: BACITRACIN OINT 500U/GM, 15 GM TP SCH ×2 (09:18→21:50)
[2017-03-30] MEDS: LACTOBACILLUS 1GM/ PACKET NG SCH ×3 (09:18→21:00)
[2017-03-30] MEDS ORDERED: FENTANYL PF 100 MCG/2ML ONE ×2 (16:41)
[2017-03-30] MEDS ORDERED: ROCURONIUM 10 MG/ML,10ML ONE (16:42)
[2017-03-30] MEDS ORDERED: PROPOFOL 10 MG/ML, 20ML ONE (16:42)
[2017-03-30] MEDS ORDERED: NEOSTIGMINE 1 MG/ML, 10ML ONE (16:43)
[2017-03-30] MEDS ORDERED: CEFAZOLIN 1,000 MG ONE ×2 (16:44)
[2017-03-30] MEDS ORDERED: GLYCOPYRROLATE 0.4 MG/2 ML, 2ML ONE (16:44)
[2017-03-30] MEDS ORDERED: SODIUM CHLORIDE 0.9% PF 10ML ONE (16:44)
[2017-03-30] MEDS ORDERED: BUPIVACAINE/PF 0.5% ONE (17:08)
[2017-03-30] MEDS ORDERED: BACITRACIN 50,000 UNIT ONE (17:08)
[2017-03-30] MEDS ORDERED: THROMBIN 5,000 UNIT VIAL TP ONE (17:08)
[2017-03-30] MEDS ORDERED: EPINEPHRINE 1 MG/ML, 1ML ONE (17:08)
[2017-03-30] MEDS ORDERED: OXYcodone 5 MG/5 ML ORAL.SOL UDC PO PRN (17:30)
[2017-03-30] MEDS ORDERED: FENTANYL PF 100 MCG/2ML IV PRN (17:30)
[2017-03-30] MEDS ORDERED: PROMETHAZINE 25 MG/ML, 1ML IV PRN (17:30)
[2017-03-30] MEDS ORDERED: ONDANSETRON 2MG/ML, 2ML IVPush PRN (17:30)
[2017-03-30] MEDS ORDERED: hydrALAzine 20 MG/ML, 1ML IV PRN (17:30)
[2017-03-30] MEDS ORDERED: MEPERIDINE/PF 25MG/0.5ML IVPush PRN (17:30)
[2017-03-30] MEDS ORDERED: ACETAMINOPHEN 325 MG TABLET PO PRN (17:30)
[2017-03-30] MEDS ORDERED: HYDROmorphone 1 MG/ML, 1ML IV PRN (17:30)
[2017-03-30] MEDS ORDERED: LABETALOL 5MG/ML, 20ML IV PRN (17:30)
[2017-03-30] MEDS ORDERED: PHENYLEPHRINE 10 MG/ML ONE (17:42)
[2017-03-30] MEDS ORDERED: BACITRACIN OINT 500U/GM, 15 GM ONE (19:16)
[2017-03-30] MEDS: HYDROmorphone 1 MG/ML, 1ML IV PRN (21:50)
[2017-03-30] MEDS: METOPROLOL 1 MG/ML, 5ML IVPush PRN (22:36)
[2017-03-30] MEDS: MICONAZOLE CRM 2%, 15GM TP SCH (23:46)
[2017-03-31 01:04] LABS: GLUCOSE, CSF 42 mg/dL (40-80); TOTAL PROTEIN,CSF 104 mg/dL (15-45)
[2017-03-31] MEDS: HYDROmorphone 1 MG/ML, 1ML IV PRN (02:02)
[2017-03-31 03:18] VITALS: BP 116/79
[2017-03-31] MEDS: FAMOTIDINE 20 MG/2 ML IV SCH ×2 (03:29→15:27)
[2017-03-31 04:40] LABS: BASOPHILS % (AUTO) 1 % (0-1); EOSINOPHILS # (AUTO) 0.09 x10^3/uL (0-0.4); EOSINOPHILS % (AUTO) 1 % (1-7); LYMPHOCYTES # (AUTO) 1.03 x10^3/uL (1-3.4); LYMPHOCYTES % (AUTO) 10 % (22-44); MD NO; MEAN CORPUSCULAR HEMOGLOBIN 29.1 pg (27.5-34.5); MEAN CORPUSCULAR HGB CONC 33.9 g/dL (33.2-36.2); MEAN CORPUSCULAR VOLUME 85.7 fL (81-97); MEAN PLATELET VOLUME 9.1 fL (7.4-10.4); MONOCYTES # (AUTO) 0.68 x10^3/uL (0.2-0.8); MONOCYTES % (AUTO) 7 % (2-9); NEUTROPHILS # (AUTO) 8.11 x10^3/uL (1.8-6.8); NEUTROPHILS % (AUTO) 81 % (42-75); PLATELET COUNT 266 x10^3/uL (130-400); RED BLOOD COUNT 4.54 x10^6/uL (4.38-5.82); RED CELL DISTRIBUTION WIDTH 15.7 % (9.4-14.8)
[2017-03-31 04:53] LABS: ANION GAP 7 mmol/L (5-15); CALCIUM 9.6 mg/dL (8.5-10.1); CHLORIDE 106 mmol/L (98-107); CREATININE 0.69 mg/dL (0.7-1.3)
[2017-03-31] MEDS: LEVETIRACETAM 500 MG in SODIUM CHLORIDE 0.9% 100 ML IV SCH ×2 (05:31→17:14)
[2017-03-31] MEDS: METOPROLOL TARTRATE 25 MG TABLET PO SCH ×2 (05:31→17:14)
[2017-03-31] MEDS: MEROPENEM 1 GM in SODIUM CHLORIDE 0.9% 100 ML IV SCH ×3 (08:14→23:38)
[2017-03-31] MEDS: SODIUM CHLORIDE FLUSH 10ML SYR IVF SCH ×2 (08:17→21:43)
[2017-03-31] MEDS: MICONAZOLE CRM 2%, 15GM TP SCH ×2 (09:51→21:44)
[2017-03-31] MEDS: BACITRACIN OINT 500U/GM, 15 GM TP SCH ×2 (09:51→21:44)
[2017-03-31] MEDS: DIPHENOXYLATE/ATROPINE ORAL SOL NG SCH (11:43)
[2017-03-31] MEDS: TAMSULOSIN 0.4 MG CAP.ER.24H PO SCH (11:43)
[2017-03-31] MEDS: LACTOBACILLUS 1GM/ PACKET NG SCH ×3 (11:44→21:44)
[2017-03-31 12:21] VITALS: BP 145/106
[2017-03-31 17:14] VITALS: BP 126/86
[2017-03-31 21:00] VITALS: BP 126/87
[2017-04-01 02:23] VITALS: BP 144/97
[2017-04-01] MEDS: FAMOTIDINE 20 MG/2 ML IV SCH ×2 (04:05→15:49)
[2017-04-01] MEDS: LEVETIRACETAM 500 MG in SODIUM CHLORIDE 0.9% 100 ML IV SCH (04:54)
[2017-04-01] MEDS: METOPROLOL TARTRATE 25 MG TABLET PO SCH ×2 (05:59→17:09)
[2017-04-01 06:42] LABS: BASOPHILS # (AUTO) 0.03 x10^3/uL (0-0.1); BASOPHILS % (AUTO) 0 % (0-1); EOSINOPHILS # (AUTO) 0.34 x10^3/uL (0-0.4); EOSINOPHILS % (AUTO) 4 % (1-7); LYMPHOCYTES # (AUTO) 1.37 x10^3/uL (1-3.4); LYMPHOCYTES % (AUTO) 15 % (22-44); MD NO; MEAN CORPUSCULAR HEMOGLOBIN 29.6 pg (27.5-34.5); MEAN CORPUSCULAR HGB CONC 34.1 g/dL (33.2-36.2); MEAN CORPUSCULAR VOLUME 86.8 fL (81-97); MEAN PLATELET VOLUME 9.3 fL (7.4-10.4); MONOCYTES # (AUTO) 0.94 x10^3/uL (0.2-0.8); MONOCYTES % (AUTO) 11 % (2-9); NEUTROPHILS # (AUTO) 6.27 x10^3/uL (1.8-6.8); NEUTROPHILS % (AUTO) 70 % (42-75); PLATELET COUNT 227 x10^3/uL (130-400); RED BLOOD COUNT 3.89 x10^6/uL (4.38-5.82); RED CELL DISTRIBUTION WIDTH 16.1 % (9.4-14.8)
[2017-04-01 06:43] LABS: ANION GAP 8 mmol/L (5-15); CALCIUM 8.7 mg/dL (8.5-10.1); CHLORIDE 104 mmol/L (98-107); CREATININE 0.57 mg/dL (0.7-1.3)
[2017-04-01 07:29] VITALS: BP 130/83
[2017-04-01] MEDS: SODIUM CHLORIDE FLUSH 10ML SYR IVF SCH ×2 (09:00→22:12)
[2017-04-01] MEDS: BACITRACIN OINT 500U/GM, 15 GM TP SCH ×2 (09:11→22:11)
[2017-04-01] MEDS: LACTOBACILLUS 1GM/ PACKET NG SCH ×3 (09:11→22:11)
[2017-04-01] MEDS: TAMSULOSIN 0.4 MG CAP.ER.24H PO SCH (09:11)
[2017-04-01] MEDS: MEROPENEM 1 GM in SODIUM CHLORIDE 0.9% 100 ML IV SCH ×3 (09:11→23:49)
[2017-04-01] MEDS: DIPHENOXYLATE/ATROPINE ORAL SOL NG SCH (09:11)
[2017-04-01] MEDS: MICONAZOLE CRM 2%, 15GM TP SCH ×2 (09:12→22:12)
[2017-04-01 15:05] VITALS: BP 129/89
[2017-04-01 17:05] VITALS: BP 129/86
[2017-04-01] MEDS: LEVETIRACETAM 250 MG in SODIUM CHLORIDE 0.9% 100 ML IV SCH (17:09)
[2017-04-01 23:01] VITALS: BP 118/79
[2017-04-02 02:39] VITALS: BP 120/79
[2017-04-02] MEDS: METOPROLOL TARTRATE 25 MG TABLET PO SCH ×2 (05:40→17:22)
[2017-04-02] MEDS: FAMOTIDINE 20 MG/2 ML IV SCH ×2 (05:41→16:18)
[2017-04-02] MEDS: LEVETIRACETAM 250 MG in SODIUM CHLORIDE 0.9% 100 ML IV SCH ×2 (05:41→17:22)
[2017-04-02 06:39] LABS: BASOPHILS # (AUTO) 0.03 x10^3/uL (0-0.1); BASOPHILS % (AUTO) 0 % (0-1); EOSINOPHILS # (AUTO) 0.31 x10^3/uL (0-0.4); EOSINOPHILS % (AUTO) 5 % (1-7); LYMPHOCYTES % (AUTO) 15 % (22-44); MD NO; MEAN CORPUSCULAR HEMOGLOBIN 29.6 pg (27.5-34.5); MEAN CORPUSCULAR HGB CONC 34.1 g/dL (33.2-36.2); MEAN CORPUSCULAR VOLUME 86.7 fL (81-97); MEAN PLATELET VOLUME 9.1 fL (7.4-10.4); MONOCYTES # (AUTO) 0.64 x10^3/uL (0.2-0.8); MONOCYTES % (AUTO) 10 % (2-9); NEUTROPHILS # (AUTO) 4.77 x10^3/uL (1.8-6.8); NEUTROPHILS % (AUTO) 71 % (42-75); PLATELET COUNT 214 x10^3/uL (130-400); RED BLOOD COUNT 3.79 x10^6/uL (4.38-5.82); RED CELL DISTRIBUTION WIDTH 15.9 % (9.4-14.8)
[2017-04-02 06:44] LABS: CHLORIDE 104 mmol/L (98-107)
[2017-04-02 06:56] LABS: ANION GAP 10 mmol/L (5-15); CALCIUM 8.4 mg/dL (8.5-10.1); CREATININE 0.65 mg/dL (0.7-1.3)
[2017-04-02 07:27] VITALS: BP 131/81
[2017-04-02] MEDS: MEROPENEM 1 GM in SODIUM CHLORIDE 0.9% 100 ML IV SCH ×3 (07:34→23:05)
[2017-04-02] MEDS: SODIUM CHLORIDE FLUSH 10ML SYR IVF SCH ×2 (07:37→21:00)
[2017-04-02] MEDS: BACITRACIN OINT 500U/GM, 15 GM TP SCH ×2 (09:25→23:05)
[2017-04-02] MEDS: LACTOBACILLUS 1GM/ PACKET NG SCH ×3 (09:25→23:04)
[2017-04-02] MEDS: MICONAZOLE CRM 2%, 15GM TP SCH ×2 (09:25→23:04)
[2017-04-02] MEDS: TAMSULOSIN 0.4 MG CAP.ER.24H PO SCH (09:25)
[2017-04-02] MEDS: DIPHENOXYLATE/ATROPINE ORAL SOL NG SCH (09:25)
[2017-04-02 13:43] VITALS: BP 145/92
[2017-04-02 17:21] VITALS: BP 143/93
[2017-04-02 21:16] VITALS: BP 161/114
[2017-04-03 03:19] VITALS: BP 144/95
[2017-04-03 06:33] VITALS: BP 142/88
[2017-04-03] MEDS: LEVETIRACETAM 250 MG in SODIUM CHLORIDE 0.9% 100 ML IV SCH ×2 (06:34→17:02)
[2017-04-03] MEDS: METOPROLOL TARTRATE 25 MG TABLET PO SCH (06:34)
[2017-04-03] MEDS: FAMOTIDINE 20 MG/2 ML IV SCH ×2 (06:34→17:02)
[2017-04-03 06:43] LABS: ANION GAP 8 mmol/L (5-15); CALCIUM 8.5 mg/dL (8.5-10.1); CHLORIDE 103 mmol/L (98-107); CREATININE 0.62 mg/dL (0.7-1.3)
[2017-04-03 07:26] VITALS: BP 147/89
[2017-04-03 07:27] LABS: BASOPHILS # (AUTO) 0.05 x10^3/uL (0-0.1); BASOPHILS % (AUTO) 1 % (0-1); EOSINOPHILS % (AUTO) 7 % (1-7); LYMPHOCYTES # (AUTO) 1.39 x10^3/uL (1-3.4); LYMPHOCYTES % (AUTO) 19 % (22-44); MD SCAN; MEAN CORPUSCULAR HEMOGLOBIN 29.6 pg (27.5-34.5); MEAN CORPUSCULAR HGB CONC 34.2 g/dL (33.2-36.2); MEAN CORPUSCULAR VOLUME 86.5 fL (81-97); MEAN PLATELET VOLUME 9.4 fL (7.4-10.4); MONOCYTES # (AUTO) 0.73 x10^3/uL (0.2-0.8); MONOCYTES % (AUTO) 10 % (2-9); NEUTROPHILS # (AUTO) 4.78 x10^3/uL (1.8-6.8); NEUTROPHILS % (AUTO) 64 % (42-75); PLATELET COUNT 244 x10^3/uL (130-400); RED BLOOD COUNT 3.93 x10^6/uL (4.38-5.82); RED CELL DISTRIBUTION WIDTH 16.1 % (9.4-14.8)
[2017-04-03] MEDS: SODIUM CHLORIDE FLUSH 10ML SYR IVF SCH ×2 (08:59→21:19)
[2017-04-03] MEDS: TAMSULOSIN 0.4 MG CAP.ER.24H PO SCH (08:59)
[2017-04-03] MEDS: LACTOBACILLUS 1GM/ PACKET NG SCH ×3 (08:59→21:18)
[2017-04-03] MEDS: MEROPENEM 1 GM in SODIUM CHLORIDE 0.9% 100 ML IV SCH ×3 (08:59→23:44)
[2017-04-03] MEDS: MICONAZOLE CRM 2%, 15GM TP SCH ×2 (09:00→21:00)
[2017-04-03] MEDS: BACITRACIN OINT 500U/GM, 15 GM TP SCH ×2 (09:00→21:20)
[2017-04-03] MEDS: DIPHENOXYLATE/ATROPINE ORAL SOL NG SCH (09:00)
[2017-04-03 11:56] LABS: HCT (SEDRATE) 33.2 % (39.2-51.8)
[2017-04-03 13:30] VITALS: BP 152/103
[2017-04-03] MEDS: hydrALAzine 20 MG/ML, 1ML IVPush PRN (15:48)
[2017-04-03] MEDS: METOPROLOL TARTRATE 50 MG TABLET PO SCH (17:02)
[2017-04-03 21:08] VITALS: BP 141/88
[2017-04-04] VITALS (7 sets, daily range): BP systolic 127–159; BP diastolic 85–110
[2017-04-04 02:49] LABS: BASOPHILS # (AUTO) 0.05 x10^3/uL (0-0.1); BASOPHILS % (AUTO) 1 % (0-1); EOSINOPHILS # (AUTO) 0.47 x10^3/uL (0-0.4); EOSINOPHILS % (AUTO) 7 % (1-7); LYMPHOCYTES # (AUTO) 0.89 x10^3/uL (1-3.4); LYMPHOCYTES % (AUTO) 14 % (22-44); MD NO; MEAN CORPUSCULAR HEMOGLOBIN 29.5 pg (27.5-34.5); MEAN CORPUSCULAR HGB CONC 33.9 g/dL (33.2-36.2); MEAN PLATELET VOLUME 8.8 fL (7.4-10.4); MONOCYTES # (AUTO) 0.68 x10^3/uL (0.2-0.8); MONOCYTES % (AUTO) 11 % (2-9); NEUTROPHILS # (AUTO) 4.31 x10^3/uL (1.8-6.8); NEUTROPHILS % (AUTO) 67 % (42-75); PLATELET COUNT 241 x10^3/uL (130-400); RED BLOOD COUNT 3.67 x10^6/uL (4.38-5.82); RED CELL DISTRIBUTION WIDTH 15.7 % (9.4-14.8)
[2017-04-04 03:01] LABS: ANION GAP 7 mmol/L (5-15); CALCIUM 8.6 mg/dL (8.5-10.1); CHLORIDE 103 mmol/L (98-107); CREATININE 0.55 mg/dL (0.7-1.3)
[2017-04-04] MEDS: FAMOTIDINE 20 MG/2 ML IV SCH (04:43)
[2017-04-04] MEDS: LEVETIRACETAM 250 MG in SODIUM CHLORIDE 0.9% 100 ML IV SCH (04:43)
[2017-04-04] MEDS: METOPROLOL TARTRATE 50 MG TABLET PO SCH ×2 (06:50→17:44)
[2017-04-04] MEDS: LACTOBACILLUS 1GM/ PACKET NG SCH ×3 (08:42→21:40)
[2017-04-04] MEDS: TAMSULOSIN 0.4 MG CAP.ER.24H PO SCH (08:42)
[2017-04-04] MEDS: DIPHENOXYLATE/ATROPINE ORAL SOL NG SCH (08:42)
[2017-04-04] MEDS: MEROPENEM 1 GM in SODIUM CHLORIDE 0.9% 100 ML IV SCH (08:42)
[2017-04-04] MEDS: SODIUM CHLORIDE FLUSH 10ML SYR IVF SCH ×2 (08:43→21:40)
[2017-04-04] MEDS: BACITRACIN OINT 500U/GM, 15 GM TP SCH ×2 (08:43→21:40)
[2017-04-04] MEDS: MICONAZOLE CRM 2%, 15GM TP SCH ×2 (08:43→21:00)
[2017-04-04] MEDS: SODIUM CHLORIDE 0.9% IV SCH (17:44)
[2017-04-04] MEDS: FAMOTIDINE 20 MG TABLET PO SCH (17:44)
[2017-04-04] MEDS: LEVETIRACETAM IV SCH (17:44)
[2017-04-05 03:44] VITALS: BP 126/82
[2017-04-05] MEDS: LEVETIRACETAM IV SCH ×2 (05:34→17:12)
[2017-04-05] MEDS: SODIUM CHLORIDE 0.9% IV SCH ×2 (05:34→17:12)
[2017-04-05] MEDS: METOPROLOL TARTRATE 50 MG TABLET PO SCH ×2 (05:45→17:12)
[2017-04-05 07:18] LABS: BASOPHILS # (AUTO) 0.05 x10^3/uL (0-0.1); BASOPHILS % (AUTO) 1 % (0-1); EOSINOPHILS # (AUTO) 0.36 x10^3/uL (0-0.4); EOSINOPHILS % (AUTO) 7 % (1-7); LYMPHOCYTES # (AUTO) 0.93 x10^3/uL (1-3.4); LYMPHOCYTES % (AUTO) 17 % (22-44); MD NO; MEAN CORPUSCULAR HEMOGLOBIN 29.4 pg (27.5-34.5); MEAN CORPUSCULAR HGB CONC 33.7 g/dL (33.2-36.2); MEAN CORPUSCULAR VOLUME 87.5 fL (81-97); MEAN PLATELET VOLUME 8.2 fL (7.4-10.4); MONOCYTES # (AUTO) 0.52 x10^3/uL (0.2-0.8); MONOCYTES % (AUTO) 9 % (2-9); NEUTROPHILS # (AUTO) 3.69 x10^3/uL (1.8-6.8); NEUTROPHILS % (AUTO) 66 % (42-75); PLATELET COUNT 249 x10^3/uL (130-400); RED BLOOD COUNT 3.98 x10^6/uL (4.38-5.82); RED CELL DISTRIBUTION WIDTH 16.1 % (9.4-14.8)
[2017-04-05 07:29] LABS: ANION GAP 6 mmol/L (5-15); CALCIUM 9.2 mg/dL (8.5-10.1); CHLORIDE 104 mmol/L (98-107); CREATININE 0.61 mg/dL (0.7-1.3)
[2017-04-05] MEDS: MICONAZOLE CRM 2%, 15GM TP SCH ×2 (09:00→20:46)
[2017-04-05] MEDS: TAMSULOSIN 0.4 MG CAP.ER.24H PO SCH (09:27)
[2017-04-05] MEDS: BACITRACIN OINT 500U/GM, 15 GM TP SCH ×2 (09:27→20:47)
[2017-04-05] MEDS: DIPHENOXYLATE/ATROPINE ORAL SOL NG SCH (09:27)
[2017-04-05] MEDS: LACTOBACILLUS 1GM/ PACKET NG SCH ×3 (09:27→20:47)
[2017-04-05] MEDS: FAMOTIDINE 20 MG TABLET PO SCH ×2 (09:27→20:47)
[2017-04-05] MEDS: SODIUM CHLORIDE FLUSH 10ML SYR IVF SCH ×2 (09:27→20:47)
[2017-04-05 09:43] VITALS: BP 104/69
[2017-04-05 13:25] VITALS: BP 136/90
[2017-04-05 21:01] VITALS: BP 159/90
[2017-04-06 03:21] VITALS: BP 164/97
[2017-04-06] MEDS: SODIUM CHLORIDE 0.9% IV SCH (05:19)
[2017-04-06] MEDS: LEVETIRACETAM IV SCH (05:19)
[2017-04-06] MEDS: METOPROLOL TARTRATE 50 MG TABLET PO SCH ×2 (05:23→17:12)
[2017-04-06 06:03] LABS: BASOPHILS # (AUTO) 0.04 x10^3/uL (0-0.1); BASOPHILS % (AUTO) 1 % (0-1); EOSINOPHILS # (AUTO) 0.42 x10^3/uL (0-0.4); EOSINOPHILS % (AUTO) 7 % (1-7); LYMPHOCYTES % (AUTO) 16 % (22-44); MD NO; MEAN CORPUSCULAR HEMOGLOBIN 29.2 pg (27.5-34.5); MEAN CORPUSCULAR HGB CONC 33.9 g/dL (33.2-36.2); MEAN CORPUSCULAR VOLUME 86.1 fL (81-97); MEAN PLATELET VOLUME 8.3 fL (7.4-10.4); MONOCYTES # (AUTO) 0.57 x10^3/uL (0.2-0.8); MONOCYTES % (AUTO) 9 % (2-9); NEUTROPHILS # (AUTO) 4.18 x10^3/uL (1.8-6.8); NEUTROPHILS % (AUTO) 67 % (42-75); PLATELET COUNT 246 x10^3/uL (130-400); RED BLOOD COUNT 4.02 x10^6/uL (4.38-5.82); RED CELL DISTRIBUTION WIDTH 15.3 % (9.4-14.8)
[2017-04-06 06:15] LABS: CALCIUM 9.1 mg/dL (8.5-10.1); CHLORIDE 105 mmol/L (98-107)
[2017-04-06 06:18] LABS: ANION GAP 6 mmol/L (5-15); CREATININE 0.57 mg/dL (0.7-1.3)
[2017-04-06] MEDS: BACITRACIN OINT 500U/GM, 15 GM TP SCH ×2 (07:55→20:29)
[2017-04-06] MEDS: LACTOBACILLUS 1GM/ PACKET NG SCH ×3 (07:55→20:28)
[2017-04-06] MEDS: SODIUM CHLORIDE FLUSH 10ML SYR IVF SCH ×2 (07:55→20:29)
[2017-04-06] MEDS: FAMOTIDINE 20 MG TABLET PO SCH ×2 (07:55→20:28)
[2017-04-06] MEDS: TAMSULOSIN 0.4 MG CAP.ER.24H PO SCH (07:55)
[2017-04-06] MEDS: DIPHENOXYLATE/ATROPINE ORAL SOL NG SCH (07:55)
[2017-04-06 07:57] VITALS: BP 148/89
[2017-04-06] MEDS: MICONAZOLE CRM 2%, 15GM TP SCH ×2 (07:57→20:28)
[2017-04-06] MEDS: ACETAMINOPHEN 650 MG/20.3 ML UDC NG PRN (08:53)
[2017-04-06 12:42] VITALS: BP 136/92
[2017-04-06 17:12] VITALS: BP 152/95
[2017-04-06 19:28] VITALS: BP 159/96
[2017-04-07] VITALS (7 sets, daily range): BP systolic 144–193; BP diastolic 95–123
[2017-04-07] MEDS: METOPROLOL TARTRATE 50 MG TABLET PO SCH ×2 (06:00→17:35)
[2017-04-07] MEDS: FAMOTIDINE 20 MG TABLET PO SCH ×2 (08:54→17:35)
[2017-04-07] MEDS: DIPHENOXYLATE/ATROPINE ORAL SOL NG SCH (08:55)
[2017-04-07] MEDS: LACTOBACILLUS 1GM/ PACKET NG SCH ×3 (08:55→20:36)
[2017-04-07] MEDS: BACITRACIN OINT 500U/GM, 15 GM TP SCH ×2 (08:55→20:43)
[2017-04-07] MEDS: SODIUM CHLORIDE FLUSH 10ML SYR IVF SCH ×2 (08:55→20:38)
[2017-04-07] MEDS: TAMSULOSIN 0.4 MG CAP.ER.24H PO SCH (08:55)
[2017-04-07] MEDS: MICONAZOLE CRM 2%, 15GM TP SCH ×2 (08:56→20:44)
[2017-04-07] MEDS: ACETAMINOPHEN 325 MG TABLET PO PRN ×2 (10:31→16:32)
[2017-04-08 00:32] VITALS: BP 180/124
[2017-04-08] MEDS: hydrALAzine 20 MG/ML, 1ML IVPush PRN (00:38)
[2017-04-08 00:46] VITALS: BP 157/95
[2017-04-08 05:09] LABS: BASOPHILS # (AUTO) 0.02 x10^3/uL (0-0.1); BASOPHILS % (AUTO) 0 % (0-1); EOSINOPHILS # (AUTO) 0.35 x10^3/uL (0-0.4); EOSINOPHILS % (AUTO) 3 % (1-7); LYMPHOCYTES # (AUTO) 0.96 x10^3/uL (1-3.4); LYMPHOCYTES % (AUTO) 9 % (22-44); MD NO; MEAN CORPUSCULAR HEMOGLOBIN 29.1 pg (27.5-34.5); MEAN CORPUSCULAR HGB CONC 33.7 g/dL (33.2-36.2); MEAN CORPUSCULAR VOLUME 86.4 fL (81-97); MEAN PLATELET VOLUME 7.5 fL (7.4-10.4); MONOCYTES # (AUTO) 1.02 x10^3/uL (0.2-0.8); MONOCYTES % (AUTO) 10 % (2-9); NEUTROPHILS # (AUTO) 8.16 x10^3/uL (1.8-6.8); NEUTROPHILS % (AUTO) 78 % (42-75); PLATELET COUNT 285 x10^3/uL (130-400); RED BLOOD COUNT 4.28 x10^6/uL (4.38-5.82); RED CELL DISTRIBUTION WIDTH 15.4 % (9.4-14.8)
[2017-04-08] MEDS: METOPROLOL TARTRATE 50 MG TABLET PO SCH ×2 (05:12→16:42)
[2017-04-08 05:17] LABS: ANION GAP 6 mmol/L (5-15); CALCIUM 9.4 mg/dL (8.5-10.1); CHLORIDE 100 mmol/L (98-107); CREATININE 0.67 mg/dL (0.7-1.3)
[2017-04-08 07:33] VITALS: BP 166/110
[2017-04-08] MEDS: TAMSULOSIN 0.4 MG CAP.ER.24H PO SCH (08:24)
[2017-04-08] MEDS: DIPHENOXYLATE/ATROPINE ORAL SOL NG SCH (08:24)
[2017-04-08] MEDS: LACTOBACILLUS 1GM/ PACKET NG SCH (08:24)
[2017-04-08] MEDS: FAMOTIDINE 20 MG TABLET PO SCH ×2 (08:24→16:42)
[2017-04-08] MEDS: SODIUM CHLORIDE FLUSH 10ML SYR IVF SCH ×2 (08:24→22:14)
[2017-04-08] MEDS: BACITRACIN OINT 500U/GM, 15 GM TP SCH ×2 (08:25→22:15)
[2017-04-08] MEDS: MICONAZOLE CRM 2%, 15GM TP SCH ×2 (08:26→22:15)
[2017-04-08] MEDS: ACETAMINOPHEN 325 MG TABLET PO PRN (08:37)
[2017-04-08] MEDS: LISINOPRIL 20 MG TABLET PO SCH ×2 (09:53→22:14)
[2017-04-08] MEDS ORDERED: OXYcodone IR 5MG TABLET PO PRN (12:00)
[2017-04-08 13:24] VITALS: BP 167/109
[2017-04-08 16:40] VITALS: BP 169/112
[2017-04-08 19:31] VITALS: BP 172/116
[2017-04-09 01:19] VITALS: BP 147/98
[2017-04-09 05:22] LABS: BASOPHILS # (AUTO) 0.04 x10^3/uL (0-0.1); BASOPHILS % (AUTO) 0 % (0-1); EOSINOPHILS # (AUTO) 0.49 x10^3/uL (0-0.4); EOSINOPHILS % (AUTO) 5 % (1-7); LYMPHOCYTES # (AUTO) 1.01 x10^3/uL (1-3.4); LYMPHOCYTES % (AUTO) 11 % (22-44); MD NO; MEAN CORPUSCULAR HEMOGLOBIN 29.2 pg (27.5-34.5); MEAN CORPUSCULAR HGB CONC 33.8 g/dL (33.2-36.2); MEAN CORPUSCULAR VOLUME 86.5 fL (81-97); MEAN PLATELET VOLUME 7.7 fL (7.4-10.4); MONOCYTES % (AUTO) 13 % (2-9); NEUTROPHILS # (AUTO) 6.89 x10^3/uL (1.8-6.8); NEUTROPHILS % (AUTO) 72 % (42-75); PLATELET COUNT 253 x10^3/uL (130-400); RED BLOOD COUNT 4.07 x10^6/uL (4.38-5.82); RED CELL DISTRIBUTION WIDTH 15.3 % (9.4-14.8)
[2017-04-09 05:26] LABS: CALCIUM 9.1 mg/dL (8.5-10.1); CHLORIDE 101 mmol/L (98-107)
[2017-04-09 05:36] LABS: ANION GAP 8 mmol/L (5-15); CREATININE 0.67 mg/dL (0.7-1.3)
[2017-04-09] MEDS: METOPROLOL TARTRATE 50 MG TABLET PO SCH ×2 (06:50→16:59)
[2017-04-09 08:21] VITALS: BP 133/87
[2017-04-09] MEDS: TAMSULOSIN 0.4 MG CAP.ER.24H PO SCH (09:58)
[2017-04-09] MEDS: LISINOPRIL 20 MG TABLET PO SCH ×2 (09:59→19:53)
[2017-04-09] MEDS: FAMOTIDINE 20 MG TABLET PO SCH ×2 (09:59→16:59)
[2017-04-09] MEDS: MICONAZOLE CRM 2%, 15GM TP SCH ×2 (09:59→19:54)
[2017-04-09] MEDS: BACITRACIN OINT 500U/GM, 15 GM TP SCH ×2 (09:59→19:54)
[2017-04-09] MEDS: SODIUM CHLORIDE FLUSH 10ML SYR IVF SCH ×2 (09:59→19:53)
[2017-04-09 14:09] VITALS: BP_SYST 118; BP_SYST 150; BP_DIAS 78; BP_DIAS 95
[2017-04-09 16:58] VITALS: BP 169/119
[2017-04-09 19:34] VITALS: BP 104/119
[2017-04-09 20:55] VITALS: BP 132/85
[2017-04-10 00:43] VITALS: BP 171/108
[2017-04-10] MEDS: hydrALAzine 20 MG/ML, 1ML IVPush PRN (00:48)
[2017-04-10] MEDS: ACETAMINOPHEN 325 MG TABLET PO PRN (00:57)
[2017-04-10 04:56] LABS: BASOPHILS # (AUTO) 0.05 x10^3/uL (0-0.1); BASOPHILS % (AUTO) 1 % (0-1); EOSINOPHILS # (AUTO) 0.56 x10^3/uL (0-0.4); EOSINOPHILS % (AUTO) 6 % (1-7); LYMPHOCYTES # (AUTO) 1.21 x10^3/uL (1-3.4); LYMPHOCYTES % (AUTO) 14 % (22-44); MD NO; MEAN CORPUSCULAR HEMOGLOBIN 29.1 pg (27.5-34.5); MEAN CORPUSCULAR HGB CONC 33.6 g/dL (33.2-36.2); MEAN CORPUSCULAR VOLUME 86.6 fL (81-97); MEAN PLATELET VOLUME 7.4 fL (7.4-10.4); MONOCYTES # (AUTO) 1.18 x10^3/uL (0.2-0.8); MONOCYTES % (AUTO) 13 % (2-9); NEUTROPHILS # (AUTO) 6.03 x10^3/uL (1.8-6.8); NEUTROPHILS % (AUTO) 67 % (42-75); PLATELET COUNT 250 x10^3/uL (130-400); RED CELL DISTRIBUTION WIDTH 15.4 % (9.4-14.8)
[2017-04-10 05:12] LABS: CHLORIDE 103 mmol/L (98-107)
[2017-04-10 05:25] LABS: ALANINE AMINOTRANSFERASE 73 U/L (12-78); ALBUMIN 2.6 g/dL (3.4-5.0); ALKALINE PHOSPHATASE 83 U/L (45-117); ANION GAP 8 mmol/L (5-15); BILIRUBIN,TOTAL 0.4 mg/dL (0.2-1.0); CALCIUM 8.8 mg/dL (8.5-10.1); TOTAL PROTEIN 6.9 g/dL (6.4-8.2)
[2017-04-10 05:53] LABS: HCT (SEDRATE) 35.5 % (39.2-51.8)
[2017-04-10 06:01] VITALS: BP 131/86
[2017-04-10] MEDS: METOPROLOL TARTRATE 50 MG TABLET PO SCH ×2 (06:02→17:22)
[2017-04-10] MEDS: MICONAZOLE CRM 2%, 15GM TP SCH ×2 (09:00→22:24)
[2017-04-10] MEDS: FAMOTIDINE 20 MG TABLET PO SCH ×2 (09:29→17:21)
[2017-04-10] MEDS: LISINOPRIL 20 MG TABLET PO SCH ×2 (09:29→22:23)
[2017-04-10] MEDS: TAMSULOSIN 0.4 MG CAP.ER.24H PO SCH (09:29)
[2017-04-10] MEDS: BACITRACIN OINT 500U/GM, 15 GM TP SCH ×2 (09:30→22:24)
[2017-04-10] MEDS: SODIUM CHLORIDE FLUSH 10ML SYR IVF SCH ×2 (09:30→22:23)
[2017-04-10 10:01] VITALS: BP 134/84
[2017-04-10 14:12] VITALS: BP 131/89
[2017-04-10 17:22] VITALS: BP 161/108
[2017-04-10 18:53] VITALS: BP 131/84
[2017-04-11] VITALS (7 sets, daily range): BP systolic 115–154; BP diastolic 64–98
[2017-04-11] MEDS: METOPROLOL TARTRATE 50 MG TABLET PO SCH ×2 (05:48→17:36)
[2017-04-11 06:03] LABS: BASOPHILS # (AUTO) 0.07 x10^3/uL (0-0.1); BASOPHILS % (AUTO) 1 % (0-1); EOSINOPHILS # (AUTO) 0.56 x10^3/uL (0-0.4); EOSINOPHILS % (AUTO) 7 % (1-7); LYMPHOCYTES # (AUTO) 1.22 x10^3/uL (1-3.4); LYMPHOCYTES % (AUTO) 15 % (22-44); MD NO; MEAN CORPUSCULAR HGB CONC 33.6 g/dL (33.2-36.2); MEAN CORPUSCULAR VOLUME 86.3 fL (81-97); MEAN PLATELET VOLUME 7.2 fL (7.4-10.4); MONOCYTES # (AUTO) 1.03 x10^3/uL (0.2-0.8); MONOCYTES % (AUTO) 13 % (2-9); NEUTROPHILS # (AUTO) 5.01 x10^3/uL (1.8-6.8); NEUTROPHILS % (AUTO) 64 % (42-75); PLATELET COUNT 213 x10^3/uL (130-400); RED BLOOD COUNT 3.88 x10^6/uL (4.38-5.82); RED CELL DISTRIBUTION WIDTH 15.2 % (9.4-14.8)
[2017-04-11 06:18] LABS: CHLORIDE 102 mmol/L (98-107)
[2017-04-11 06:33] LABS: ANION GAP 10 mmol/L (5-15); CALCIUM 9.2 mg/dL (8.5-10.1); CREATININE 0.69 mg/dL (0.7-1.3)
[2017-04-11] MEDS: LISINOPRIL 20 MG TABLET PO SCH ×2 (08:51→20:11)
[2017-04-11] MEDS: FAMOTIDINE 20 MG TABLET PO SCH ×2 (08:51→16:19)
[2017-04-11] MEDS: BACITRACIN OINT 500U/GM, 15 GM TP SCH ×2 (08:51→20:11)
[2017-04-11] MEDS: TAMSULOSIN 0.4 MG CAP.ER.24H PO SCH (08:51)
[2017-04-11] MEDS: MICONAZOLE CRM 2%, 15GM TP SCH ×2 (08:52→20:11)
[2017-04-11] MEDS: SODIUM CHLORIDE FLUSH 10ML SYR IVF SCH ×2 (09:00→20:11)
[2017-04-12 01:25] VITALS: BP 107/71
[2017-04-12] MEDS: METOPROLOL TARTRATE 50 MG TABLET PO SCH ×2 (05:48→17:05)
[2017-04-12 05:49] VITALS: BP 115/76
[2017-04-12 07:52] VITALS: BP 127/87
[2017-04-12] MEDS: SODIUM CHLORIDE FLUSH 10ML SYR IVF SCH ×2 (08:59→21:41)
[2017-04-12] MEDS: LISINOPRIL 20 MG TABLET PO SCH ×2 (08:59→21:40)
[2017-04-12] MEDS: FAMOTIDINE 20 MG TABLET PO SCH ×2 (08:59→17:05)
[2017-04-12] MEDS: TAMSULOSIN 0.4 MG CAP.ER.24H PO SCH (08:59)
[2017-04-12] MEDS: BACITRACIN OINT 500U/GM, 15 GM TP SCH ×2 (09:00→21:42)
[2017-04-12] MEDS: MICONAZOLE CRM 2%, 15GM TP SCH ×2 (09:00→21:00)
[2017-04-12 16:09] VITALS: BP 146/92
[2017-04-12 20:08] VITALS: BP 135/86
[2017-04-13 04:30] VITALS: BP 136/75
[2017-04-13] MEDS: METOPROLOL TARTRATE 50 MG TABLET PO SCH ×2 (05:57→17:11)
[2017-04-13 07:49] VITALS: BP 133/84
[2017-04-13] MEDS: MICONAZOLE CRM 2%, 15GM TP SCH ×2 (09:00→20:21)
[2017-04-13] MEDS: TAMSULOSIN 0.4 MG CAP.ER.24H PO SCH (09:18)
[2017-04-13] MEDS: FAMOTIDINE 20 MG TABLET PO SCH ×2 (09:18→17:11)
[2017-04-13] MEDS: LISINOPRIL 20 MG TABLET PO SCH ×2 (09:18→20:27)
[2017-04-13] MEDS: SODIUM CHLORIDE FLUSH 10ML SYR IVF SCH ×2 (09:18→20:20)
[2017-04-13] MEDS: BACITRACIN OINT 500U/GM, 15 GM TP SCH ×2 (09:19→20:22)
[2017-04-13 14:11] VITALS: BP 133/87
[2017-04-13 20:26] VITALS: BP 138/90
[2017-04-14 05:07] VITALS: BP 138/90
[2017-04-14] MEDS: METOPROLOL TARTRATE 50 MG TABLET PO SCH ×2 (06:30→17:43)
[2017-04-14 06:31] VITALS: BP 144/87
[2017-04-14] MEDS: TAMSULOSIN 0.4 MG CAP.ER.24H PO SCH (08:55)
[2017-04-14] MEDS: SODIUM CHLORIDE FLUSH 10ML SYR IVF SCH ×2 (08:55→21:25)
[2017-04-14] MEDS: MICONAZOLE CRM 2%, 15GM TP SCH ×2 (08:56→21:00)
[2017-04-14] MEDS: FAMOTIDINE 20 MG TABLET PO SCH ×2 (08:56→16:07)
[2017-04-14] MEDS: BACITRACIN OINT 500U/GM, 15 GM TP SCH ×2 (08:56→21:25)
[2017-04-14] MEDS: LISINOPRIL 20 MG TABLET PO SCH ×2 (08:56→21:25)
[2017-04-14 14:19] VITALS: BP 143/91
[2017-04-14 16:07] VITALS: BP 158/90
[2017-04-14 20:59] VITALS: BP 143/89
[2017-04-15] VITALS (7 sets, daily range): BP systolic 123–171; BP diastolic 81–99
[2017-04-15] MEDS: METOPROLOL TARTRATE 50 MG TABLET PO SCH ×2 (05:55→17:50)
[2017-04-15] MEDS: FAMOTIDINE 20 MG TABLET PO SCH ×2 (08:26→16:15)
[2017-04-15] MEDS: SODIUM CHLORIDE FLUSH 10ML SYR IVF SCH ×2 (08:26→21:16)
[2017-04-15] MEDS: TAMSULOSIN 0.4 MG CAP.ER.24H PO SCH (08:26)
[2017-04-15] MEDS: LISINOPRIL 20 MG TABLET PO SCH ×2 (08:26→21:17)
[2017-04-15] MEDS: BACITRACIN OINT 500U/GM, 15 GM TP SCH ×2 (08:26→21:17)
[2017-04-15] MEDS: MICONAZOLE CRM 2%, 15GM TP SCH ×2 (08:26→21:00)
[2017-04-15] MEDS: ACETAMINOPHEN 325 MG TABLET PO PRN ×2 (09:02→17:50)
[2017-04-16 02:56] VITALS: BP 135/88
[2017-04-16 06:00] VITALS: BP 112/74
[2017-04-16] MEDS: METOPROLOL TARTRATE 50 MG TABLET PO SCH ×2 (06:01→17:13)
[2017-04-16 06:55] VITALS: BP 139/88
[2017-04-16] MEDS: FAMOTIDINE 20 MG TABLET PO SCH ×2 (08:37→17:13)
[2017-04-16] MEDS: MICONAZOLE CRM 2%, 15GM TP SCH ×2 (08:38→21:00)
[2017-04-16] MEDS: LISINOPRIL 20 MG TABLET PO SCH ×2 (08:38→21:10)
[2017-04-16] MEDS: TAMSULOSIN 0.4 MG CAP.ER.24H PO SCH (08:38)
[2017-04-16] MEDS: BACITRACIN OINT 500U/GM, 15 GM TP SCH ×2 (08:38→21:00)
[2017-04-16] MEDS: SODIUM CHLORIDE FLUSH 10ML SYR IVF SCH ×2 (08:38→21:00)
[2017-04-16] MEDS: ACETAMINOPHEN 325 MG TABLET PO PRN ×2 (12:59→17:17)
[2017-04-16 13:25] VITALS: BP 158/97
[2017-04-16 17:12] VITALS: BP 170/92
[2017-04-16 17:31] LABS: HCT (SEDRATE) 35.8 % (39.2-51.8)
[2017-04-16 17:32] LABS: ANION GAP 8 mmol/L (5-15); CALCIUM 9.1 mg/dL (8.5-10.1); CHLORIDE 95 mmol/L (98-107); CREATININE 0.96 mg/dL (0.7-1.3)
[2017-04-16 17:36] LABS: MEAN CORPUSCULAR HEMOGLOBIN 29.2 pg (27.5-34.5); MEAN CORPUSCULAR VOLUME 85.8 fL (81-97); MEAN PLATELET VOLUME 7.2 fL (7.4-10.4); PLATELET COUNT 221 x10^3/uL (130-400); RED BLOOD COUNT 4.14 x10^6/uL (4.38-5.82); RED CELL DISTRIBUTION WIDTH 15.3 % (9.4-14.8)
[2017-04-16 18:02] LABS: BASOPHILS # (AUTO) 0.03 x10^3/uL (0-0.1); BASOPHILS % (AUTO) 0 % (0-1); EOSINOPHILS # (AUTO) 0.24 x10^3/uL (0-0.4); EOSINOPHILS % (AUTO) 2 % (1-7); LYMPHOCYTES # (AUTO) 0.63 x10^3/uL (1-3.4); LYMPHOCYTES % (AUTO) 6 % (22-44); MD SCAN; MONOCYTES # (AUTO) 0.58 x10^3/uL (0.2-0.8); MONOCYTES % (AUTO) 5 % (2-9); NEUTROPHILS # (AUTO) 9.44 x10^3/uL (1.8-6.8); NEUTROPHILS % (AUTO) 86 % (42-75)
[2017-04-16 20:58] VITALS: BP 148/92
[2017-04-17 05:51] VITALS: BP 139/88
[2017-04-17] MEDS: METOPROLOL TARTRATE 50 MG TABLET PO SCH ×2 (05:54→17:40)
[2017-04-17 07:52] VITALS: BP 126/82
[2017-04-17] MEDS: MICONAZOLE CRM 2%, 15GM TP SCH ×2 (08:11→21:00)
[2017-04-17] MEDS: FAMOTIDINE 20 MG TABLET PO SCH ×2 (08:11→16:32)
[2017-04-17] MEDS: LISINOPRIL 20 MG TABLET PO SCH ×2 (08:11→22:04)
[2017-04-17] MEDS: TAMSULOSIN 0.4 MG CAP.ER.24H PO SCH (08:11)
[2017-04-17] MEDS: BACITRACIN OINT 500U/GM, 15 GM TP SCH ×3 (08:11→21:00)
[2017-04-17] MEDS ORDERED: VANCOMYCIN PER PHARMACY MC PRN (09:00)
[2017-04-17] MEDS ORDERED: PHARMACOKINETIC MONITORING MC PRN (09:00)
[2017-04-17] MEDS ORDERED: metroNIDAZOLE 500 MG TABLET PO SCH (09:00)
[2017-04-17] MEDS: VANCOMYCIN 1,600 MG in SODIUM CHLORIDE 0.9% 250 ML IV SCH ×2 (10:54→23:48)
[2017-04-17] MEDS ORDERED: FLU VACC QS2017-18 (36MOS+) UP/PF 0.5 ML IM-VACC ONE (12:30)
[2017-04-17] MEDS ORDERED: PNEUMOCOCCAL 23 VACCINE IM-VACC ONE (12:30)
[2017-04-17] MEDS: CEFEPIME 2 GM in DEXTROSE 5% 100 ML IV SCH (12:44)
[2017-04-17] MEDS: ACETAMINOPHEN 325 MG TABLET PO PRN ×3 (12:49→23:44)
[2017-04-17 14:12] LABS: MICROSCOPIC NOT IND
[2017-04-17 14:14] LABS: CULTURE INDICATED? NO
[2017-04-17 15:48] VITALS: BP 128/84
[2017-04-17 17:39] VITALS: BP 132/87
[2017-04-17 20:57] VITALS: BP 131/84
[2017-04-17] MEDS: metroNIDAZOLE 500 MG TABLET PO SCH (22:05)
[2017-04-17] MEDS ORDERED: METOCLOPRAMIDE 5 MG/ML, 2ML IVPush ONE (23:00)
[2017-04-17] MEDS ORDERED: DIPHENHYDRAMINE 50 MG/ML, 1ML IVPush ONE (23:00)
[2017-04-18] VITALS (8 sets, daily range): BP systolic 135–180; BP diastolic 78–112
[2017-04-18] MEDS: CEFEPIME 2 GM in DEXTROSE 5% 100 ML IV SCH ×2 (01:51→13:10)
[2017-04-18] MEDS: METOPROLOL TARTRATE 50 MG TABLET PO SCH ×2 (06:23→16:29)
[2017-04-18] MEDS: ACETAMINOPHEN 325 MG TABLET PO PRN ×2 (06:34→20:58)
[2017-04-18] MEDS: FAMOTIDINE 20 MG TABLET PO SCH ×2 (08:30→16:28)
[2017-04-18] MEDS: metroNIDAZOLE 500 MG TABLET PO SCH ×3 (08:30→20:58)
[2017-04-18] MEDS: MICONAZOLE CRM 2%, 15GM TP SCH ×2 (08:30→20:59)
[2017-04-18] MEDS: LISINOPRIL 20 MG TABLET PO SCH ×2 (08:30→20:59)
[2017-04-18] MEDS: TAMSULOSIN 0.4 MG CAP.ER.24H PO SCH (08:30)
[2017-04-18] MEDS: BACITRACIN OINT 500U/GM, 15 GM TP SCH ×2 (08:30→20:59)
[2017-04-18] MEDS: VANCOMYCIN 1,600 MG in SODIUM CHLORIDE 0.9% 250 ML IV SCH ×3 (11:37→21:15)
[2017-04-19] MEDS: ACETAMINOPHEN 325 MG TABLET PO PRN ×2 (01:52→21:24)
[2017-04-19] MEDS: CEFEPIME 2 GM in DEXTROSE 5% 100 ML IV SCH ×2 (01:52→13:00)
[2017-04-19 01:56] VITALS: BP 112/73
[2017-04-19 06:23] VITALS: BP 108/70
[2017-04-19] MEDS: METOPROLOL TARTRATE 50 MG TABLET PO SCH ×2 (06:23→17:23)
[2017-04-19 07:16] VITALS: BP 122/74
[2017-04-19] MEDS: LISINOPRIL 20 MG TABLET PO SCH ×2 (08:33→21:23)
[2017-04-19] MEDS: BACITRACIN OINT 500U/GM, 15 GM TP SCH ×2 (08:33→21:00)
[2017-04-19] MEDS: TAMSULOSIN 0.4 MG CAP.ER.24H PO SCH (08:33)
[2017-04-19] MEDS: FAMOTIDINE 20 MG TABLET PO SCH ×2 (08:33→17:23)
[2017-04-19] MEDS: metroNIDAZOLE 500 MG TABLET PO SCH ×4 (08:33→21:24)
[2017-04-19] MEDS: MICONAZOLE CRM 2%, 15GM TP SCH ×2 (08:34→21:13)
[2017-04-19] MEDS: VANCOMYCIN 1,600 MG in SODIUM CHLORIDE 0.9% 250 ML IV SCH ×2 (11:02→23:00)
[2017-04-19 13:31] VITALS: BP 128/89
[2017-04-19 19:53] VITALS: BP 114/72
[2017-04-20] MEDS: CEFEPIME 2 GM in DEXTROSE 5% 100 ML IV SCH ×2 (00:44→13:11)
[2017-04-20 05:16] VITALS: BP 120/78
[2017-04-20] MEDS: METOPROLOL TARTRATE 50 MG TABLET PO SCH ×2 (05:23→18:21)
[2017-04-20 05:49] LABS: BASOPHILS # (AUTO) 0.02 x10^3/uL (0-0.1); BASOPHILS % (AUTO) 0 % (0-1); EOSINOPHILS # (AUTO) 0.44 x10^3/uL (0-0.4); EOSINOPHILS % (AUTO) 4 % (1-7); LYMPHOCYTES # (AUTO) 1.18 x10^3/uL (1-3.4); LYMPHOCYTES % (AUTO) 11 % (22-44); MD NO; MEAN CORPUSCULAR HEMOGLOBIN 29.4 pg (27.5-34.5); MEAN CORPUSCULAR HGB CONC 34.1 g/dL (33.2-36.2); MEAN CORPUSCULAR VOLUME 86.3 fL (81-97); MEAN PLATELET VOLUME 7.2 fL (7.4-10.4); MONOCYTES # (AUTO) 1.26 x10^3/uL (0.2-0.8); MONOCYTES % (AUTO) 12 % (2-9); NEUTROPHILS # (AUTO) 7.79 x10^3/uL (1.8-6.8); NEUTROPHILS % (AUTO) 73 % (42-75); PLATELET COUNT 237 x10^3/uL (130-400); RED BLOOD COUNT 3.94 x10^6/uL (4.38-5.82); RED CELL DISTRIBUTION WIDTH 15.6 % (9.4-14.8)
[2017-04-20 06:03] LABS: ALBUMIN 2.6 g/dL (3.4-5.0); ANION GAP 5 mmol/L (5-15); CALCIUM 8.7 mg/dL (8.5-10.1); CHLORIDE 100 mmol/L (98-107)
[2017-04-20 06:07] LABS: ALANINE AMINOTRANSFERASE 35 U/L (12-78); ALKALINE PHOSPHATASE 78 U/L (45-117); BILIRUBIN,TOTAL 0.3 mg/dL (0.2-1.0); CREATININE 0.94 mg/dL (0.7-1.3); TOTAL PROTEIN 7.6 g/dL (6.4-8.2)
[2017-04-20 08:10] VITALS: BP 120/78
[2017-04-20] MEDS: TAMSULOSIN 0.4 MG CAP.ER.24H PO SCH (09:59)
[2017-04-20] MEDS: metroNIDAZOLE 500 MG TABLET PO SCH ×3 (09:59→21:00)
[2017-04-20] MEDS: FAMOTIDINE 20 MG TABLET PO SCH ×2 (09:59→18:21)
[2017-04-20] MEDS: BACITRACIN OINT 500U/GM, 15 GM TP SCH ×2 (10:00→21:00)
[2017-04-20] MEDS: LISINOPRIL 20 MG TABLET PO SCH ×2 (10:00→21:37)
[2017-04-20] MEDS: VANCOMYCIN 1,600 MG in SODIUM CHLORIDE 0.9% 250 ML IV SCH ×2 (10:01→22:28)
[2017-04-20] MEDS: MICONAZOLE CRM 2%, 15GM TP SCH ×2 (10:01→21:00)
[2017-04-20 14:09] VITALS: BP 147/87
[2017-04-20 19:43] VITALS: BP 134/87
[2017-04-21 00:46] VITALS: BP 136/91
[2017-04-21] MEDS: CEFEPIME 2 GM in DEXTROSE 5% 100 ML IV SCH ×2 (01:00→13:19)
[2017-04-21 05:55] VITALS: BP 125/85
[2017-04-21] MEDS: METOPROLOL TARTRATE 50 MG TABLET PO SCH ×2 (05:56→17:23)
[2017-04-21 06:11] LABS: BASOPHILS # (AUTO) 0.05 x10^3/uL (0-0.1); BASOPHILS % (AUTO) 1 % (0-1); EOSINOPHILS # (AUTO) 0.49 x10^3/uL (0-0.4); EOSINOPHILS % (AUTO) 6 % (1-7); LYMPHOCYTES # (AUTO) 1.37 x10^3/uL (1-3.4); LYMPHOCYTES % (AUTO) 16 % (22-44); MD NO; MEAN CORPUSCULAR HEMOGLOBIN 28.8 pg (27.5-34.5); MEAN CORPUSCULAR HGB CONC 33.7 g/dL (33.2-36.2); MEAN CORPUSCULAR VOLUME 85.4 fL (81-97); MEAN PLATELET VOLUME 7.3 fL (7.4-10.4); MONOCYTES % (AUTO) 9 % (2-9); NEUTROPHILS % (AUTO) 69 % (42-75); PLATELET COUNT 278 x10^3/uL (130-400); RED BLOOD COUNT 3.88 x10^6/uL (4.38-5.82); RED CELL DISTRIBUTION WIDTH 15.6 % (9.4-14.8)
[2017-04-21 06:17] LABS: ANION GAP 6 mmol/L (5-15); CALCIUM 9.1 mg/dL (8.5-10.1); CHLORIDE 103 mmol/L (98-107); CREATININE 0.65 mg/dL (0.7-1.3)
[2017-04-21] MEDS: FAMOTIDINE 20 MG TABLET PO SCH (09:51)
[2017-04-21] MEDS: LISINOPRIL 20 MG TABLET PO SCH ×2 (09:51→20:42)
[2017-04-21] MEDS: TAMSULOSIN 0.4 MG CAP.ER.24H PO SCH (09:51)
[2017-04-21] MEDS: metroNIDAZOLE 500 MG TABLET PO SCH (09:51)
[2017-04-21] MEDS: MICONAZOLE CRM 2%, 15GM TP SCH ×2 (09:52→20:43)
[2017-04-21] MEDS: BACITRACIN OINT 500U/GM, 15 GM TP SCH ×2 (09:52→20:43)
[2017-04-21] MEDS ORDERED: [UNRECOGNIZED DRUG - REMARK] MC SCH (10:30)
[2017-04-21] MEDS: VANCOMYCIN 1,600 MG in SODIUM CHLORIDE 0.9% 250 ML IV SCH (11:09)
[2017-04-21 13:15] VITALS: BP 127/83
[2017-04-21 19:34] VITALS: BP 144/83
[2017-04-21] MEDS: ACETAMINOPHEN 325 MG TABLET PO PRN (22:26)
[2017-04-22 01:15] VITALS: BP 119/79
[2017-04-22 05:23] VITALS: BP 113/73
[2017-04-22] MEDS: METOPROLOL TARTRATE 50 MG TABLET PO SCH ×2 (05:26→17:49)
[2017-04-22 08:57] VITALS: BP 136/89
[2017-04-22] MEDS: LISINOPRIL 20 MG TABLET PO SCH (09:26)
[2017-04-22] MEDS: TAMSULOSIN 0.4 MG CAP.ER.24H PO SCH (09:26)
[2017-04-22] MEDS: BACITRACIN OINT 500U/GM, 15 GM TP SCH (09:27)
[2017-04-22] MEDS: MICONAZOLE CRM 2%, 15GM TP SCH (09:27)
[2017-04-22] MEDS ORDERED: TAMS-11 PO (13:12)
[2017-04-22] MEDS ORDERED: METO50TA82 PO (13:12)
[2017-04-22] MEDS ORDERED: LISI-170 PO (13:12)
[2017-04-22] MEDS ORDERED: HYDR-3342 PO (13:12)
[2017-04-22] MEDS ORDERED: ACET325T14 PO (13:12)
[2017-04-22] MEDS: ACETAMINOPHEN 325 MG TABLET PO PRN (13:38)
[2017-04-22 15:11] VITALS: BP 149/88
[2017-04-22 17:45] VITALS: BP 148/97
== END 2017-04-22 18:17 | disposition home or self-care (01) | DRG 25 ==
LOC: ED 19:55 → EDIP 19:58 → 4WST 20:18 → CCU 03-08 00:15 → 4NOR 03-31 11:58
PROVIDERS: ADMIT Hospitalist; ATTEND Family Medicine
PROC: 5A1955Z Respiratory Ventilation, Greater than 96 Consecutive Hours (ICD-10-PCS; 2017-03-08)
PROC: 00P63JZ Removal of Synthetic Substitute from Cerebral Ventricle, Percutaneous Approach (ICD-10-PCS; 2017-03-08)
PROC: 0BH17EZ Insertion of Endotracheal Airway into Trachea, Via Natural or Artificial Opening (ICD-10-PCS; 2017-03-08)
PROC: 0T9B70Z Drainage of Bladder with Drainage Device, Via Natural or Artificial Opening (ICD-10-PCS; 2017-03-08)
PROC: 0B9J8ZZ Drainage of Left Lower Lung Lobe, Via Natural or Artificial Opening Endoscopic (ICD-10-PCS; 2017-03-08)
PROC: 0B9C8ZZ Drainage of Right Upper Lung Lobe, Via Natural or Artificial Opening Endoscopic (ICD-10-PCS; 2017-03-08)
PROC: 009630Z Drainage of Cerebral Ventricle with Drainage Device, Percutaneous Approach (ICD-10-PCS; principal; 2017-03-08 19:30)
PROC: 00W630Z Revision of Drainage Device in Cerebral Ventricle, Percutaneous Approach (ICD-10-PCS; 2017-03-16)
PROC: 3E0234Z Introduction of Serum, Toxoid and Vaccine into Muscle, Percutaneous Approach (ICD-10-PCS; 2017-03-16)
PROC: 00163J6 Bypass Cerebral Ventricle to Peritoneal Cavity with Synthetic Substitute, Percutaneous Approach (ICD-10-PCS; 2017-03-30)
PROC: 0WJG4ZZ Inspection of Peritoneal Cavity, Percutaneous Endoscopic Approach (ICD-10-PCS; 2017-03-30)
DX: T85.730A Infection and inflammatory reaction due to ventricular intracranial (communicating) shunt, initial encounter (principal); A40.1 Sepsis due to streptococcus, group B; J96.00 Acute respiratory failure, unspecified whether with hypoxia or hypercapnia; N17.0 Acute kidney failure with tubular necrosis; G03.9 Meningitis, unspecified; Z99.11 Dependence on respirator [ventilator] status; G92 Toxic encephalopathy; E44.1 Mild protein-calorie malnutrition; G91.1 Obstructive hydrocephalus; E87.1 Hypo-osmolality and hyponatremia; E87.0 Hyperosmolality and hypernatremia; J98.11 Atelectasis; T85.01XA Breakdown (mechanical) of ventricular intracranial (communicating) shunt, initial encounter; E11.65 Type 2 diabetes mellitus with hyperglycemia; E78.5 Hyperlipidemia, unspecified; I10 Essential (primary) hypertension; G40.909 Epilepsy, unspecified, not intractable, without status epilepticus; E87.6 Hypokalemia; Y83.1 Surgical operation with implant of artificial internal device as the cause of abnormal reaction of the patient, or of later complication, without mention of misadventure at the time of the procedure; N40.1 Benign prostatic hyperplasia with lower urinary tract symptoms; D63.8 Anemia in other chronic diseases classified elsewhere; E66.9 Obesity, unspecified; G93.89 Other specified disorders of brain; K66.0 Peritoneal adhesions (postprocedural) (postinfection); R50.2 Drug induced fever; Y75.2 Prosthetic and other implants, materials and neurological devices associated with adverse incidents; Z86.69 Personal history of other diseases of the nervous system and sense organs; Z83.3 Family history of diabetes mellitus; Z82.49 Family history of ischemic heart disease and other diseases of the circulatory system; Z68.34 Body mass index [BMI] 34.0-34.9, adult; Z23 Encounter for immunization
CPT/HCPCS: 36415; 36600; 70250; 70450; 70553; 71010; 71046; 72040; 74000; 74230; 80047; 80048; 80053; 80202; 80307; 81001; 81003; 82140; 82607; 82803; 82945; 82947; 82962; 83036; 83605; 83735; 84100; 84145; 84157; 84295; 84478; 85025; 85610; 85651; 85730; 86140; 86703; 86803; 87040; 87070; 87075; 87077; 87081; 87086; 87147; 87181; 87205; 87252; 87899; 89051; 90686; 90732; 93005; 93880; 94002; 94003; 94150; 95819; A9585; C1729; J0171; J0295; J0690; J0696; J1170; J1644; J1815; J1953; J2185; J2250; J2405; J2704; J2710; J3010; J3370; J3480; J3490; P9041; 92523-GN; C1727; C1751; C1894; G0435; G0479; J0330; J0360; J1940; J2060; J2370; J7040; J7050; P9045; S0028

== ENCOUNTER 2017-04-26 22:57 | Inpatient (IN) | payer MEDICAID, OTHER ==
[~2017-04-26] VITALS: Ht 165.1 cm; Wt 99.0 kg
[~2017-04-26 22:57] MED LIST: ACET325T14 PO; HYDR-3342 PO; LISI-170 PO; METO50TA82 PO; TAMS-11 PO
[2017-04-27 00:10] LABS: ALBUMIN 3.1 g/dL (3.4-5.0); ANION GAP 7 mmol/L (5-15); CALCIUM 9.1 mg/dL (8.5-10.1); CHLORIDE 104 mmol/L (98-107)
[2017-04-27 00:11] LABS: BASOPHILS # (AUTO) 0.05 x10^3/uL (0-0.1); BASOPHILS % (AUTO) 1 % (0-1); EOSINOPHILS # (AUTO) 0.21 x10^3/uL (0-0.4); EOSINOPHILS % (AUTO) 3 % (1-7); LYMPHOCYTES # (AUTO) 1.52 x10^3/uL (1-3.4); LYMPHOCYTES % (AUTO) 18 % (22-44); MD NO; MEAN CORPUSCULAR HEMOGLOBIN 28.5 pg (27.5-34.5); MEAN CORPUSCULAR HGB CONC 33.1 g/dL (33.2-36.2); MEAN CORPUSCULAR VOLUME 86.3 fL (81-97); MEAN PLATELET VOLUME 6.7 fL (7.4-10.4); MONOCYTES # (AUTO) 0.86 x10^3/uL (0.2-0.8); MONOCYTES % (AUTO) 10 % (2-9); NEUTROPHILS # (AUTO) 5.81 x10^3/uL (1.8-6.8); NEUTROPHILS % (AUTO) 69 % (42-75); PLATELET COUNT 464 x10^3/uL (130-400); RED BLOOD COUNT 4.08 x10^6/uL (4.38-5.82)
[2017-04-27] MEDS ORDERED: DEXAMETHASONE 4 MG/ML, 1ML IVPush SCH (02:00)
[2017-04-27] MEDS ORDERED: SODIUM CHLORIDE 0.9% 1,000 ML IV ONE (02:07)
[2017-04-27] MEDS ORDERED: DEXAMETHASONE 4 MG/ML, 1ML ONE (02:23)
[2017-04-27] MEDS ORDERED: ONDANSETRON 2MG/ML, 2ML IVPush PRN ×2 (02:30)
[2017-04-27] MEDS ORDERED: hydrALAzine 20 MG/ML, 1ML IVPush PRN (02:30)
[2017-04-27] MEDS ORDERED: ACETAMINOPHEN 325 MG TABLET PO PRN (02:30)
[2017-04-27 04:01] VITALS: BP 158/112
[2017-04-27] MEDS: METOPROLOL TARTRATE 50 MG TABLET PO SCH ×2 (05:57→18:21)
[2017-04-27 07:00] VITALS: BP 157/100
[2017-04-27] MEDS: TAMSULOSIN 0.4 MG CAP.ER.24H PO SCH (09:40)
[2017-04-27] MEDS: LISINOPRIL 20 MG TABLET PO SCH ×2 (09:41→21:48)
[2017-04-27] MEDS: DEXAMETHASONE 4 MG/ML, 1ML IVPush SCH ×3 (09:41→21:48)
[2017-04-27 14:29] VITALS: BP 137/95
[2017-04-27 20:06] VITALS: BP 132/79
[2017-04-27 21:48] VITALS: BP 131/77
[2017-04-28] MEDS: DEXAMETHASONE 4 MG/ML, 1ML IVPush SCH ×2 (02:57→10:41)
[2017-04-28 02:58] VITALS: BP 138/90
[2017-04-28 05:24] LABS: BASOPHILS % (AUTO) 0 % (0-1); EOSINOPHILS # (AUTO) 0.06 x10^3/uL (0-0.4); EOSINOPHILS % (AUTO) 1 % (1-7); LYMPHOCYTES # (AUTO) 0.67 x10^3/uL (1-3.4); LYMPHOCYTES % (AUTO) 8 % (22-44); MD NO; MEAN CORPUSCULAR HEMOGLOBIN 28.8 pg (27.5-34.5); MEAN CORPUSCULAR HGB CONC 33.6 g/dL (33.2-36.2); MEAN CORPUSCULAR VOLUME 85.7 fL (81-97); MEAN PLATELET VOLUME 7.2 fL (7.4-10.4); MONOCYTES # (AUTO) 0.47 x10^3/uL (0.2-0.8); MONOCYTES % (AUTO) 5 % (2-9); NEUTROPHILS # (AUTO) 7.54 x10^3/uL (1.8-6.8); NEUTROPHILS % (AUTO) 86 % (42-75); PLATELET COUNT 468 x10^3/uL (130-400); RED BLOOD COUNT 3.99 x10^6/uL (4.38-5.82); RED CELL DISTRIBUTION WIDTH 15.8 % (9.4-14.8)
[2017-04-28 05:34] LABS: CHLORIDE 100 mmol/L (98-107)
[2017-04-28] MEDS: METOPROLOL TARTRATE 50 MG TABLET PO SCH ×2 (05:36→16:50)
[2017-04-28 05:43] LABS: ANION GAP 10 mmol/L (5-15); CALCIUM 8.9 mg/dL (8.5-10.1); CREATININE 0.78 mg/dL (0.7-1.3)
[2017-04-28 08:00] VITALS: BP 146/103
[2017-04-28] MEDS ORDERED: IBUPROFEN 200 MG TABLET PO PRN (10:00)
[2017-04-28] MEDS: LISINOPRIL 20 MG TABLET PO SCH (10:41)
[2017-04-28] MEDS: TAMSULOSIN 0.4 MG CAP.ER.24H PO SCH (10:41)
[2017-04-28 14:32] VITALS: BP 136/88
[2017-04-28] MEDS ORDERED: DEXA1TAB5 PO (15:23)
[2017-04-28] MEDS ORDERED: DEXAMETHASONE 1 MG TABLET PO SCH (17:00)
== END 2017-04-28 17:50 | disposition home or self-care (01) | DRG 70 ==
LOC: ED 04-27 00:02 → SUATTDRO 04-27 02:05 → EDIP 04-27 02:07 → 4WST 04-27 04:12
PROVIDERS: ADMIT Internal Medicine; ATTEND Internal Medicine
DX: G93.41 Metabolic encephalopathy (principal); G93.6 Cerebral edema; I63.9 Cerebral infarction, unspecified; E44.1 Mild protein-calorie malnutrition; Z68.36 Body mass index [BMI] 36.0-36.9, adult; I10 Essential (primary) hypertension; N40.0 Benign prostatic hyperplasia without lower urinary tract symptoms
CPT/HCPCS: 36415; 70250; 70450; 71045; 72040; 74018; 80048; 82040; 82140; 83735; 85025; 96374; J1100; J0360